=== PATIENT | male | born 1930 | race Asian ===

== ENCOUNTER 2017-03-11 01:28 | Inpatient (IN) | payer MEDICARE ==
[~2017-03-11] VITALS: Ht 154.9 cm; Wt 55.2 kg
[2017-03-11] VITALS (8 sets, daily range): BP systolic 95–134; BP diastolic 53–79; PULSE 73–88; RESP 16–22; O2SAT 93–98
[2017-03-11] MEDS ORDERED: ISOS10TA2 PO (03:07)
[2017-03-11] MEDS ORDERED: TAMS0.4C29 PO (03:07)
[2017-03-11] MEDS ORDERED: FLUT16SP NASAL (03:07)
[2017-03-11] MEDS ORDERED: LOSA100T29 PO (03:07)
[2017-03-11] MEDS ORDERED: ASPI-973 PO (03:08)
[2017-03-11] MEDS ORDERED: CLOP75TA28 PO (03:08)
[2017-03-11] MEDS ORDERED: TIMO5DRO5 BOTH_EYES (03:08)
[2017-03-11] MEDS ORDERED: POTA20TA16 PO (03:08)
[2017-03-11] MEDS ORDERED: FUR20 PO (03:08)
[2017-03-11] MEDS ORDERED: AMLO5TAB2 PO (03:08)
[2017-03-11] MEDS ORDERED: METF500T4 PO (03:08)
[2017-03-11] MEDS ORDERED: Alum-Mag Hydrox-Simeth 30 mL Suspension PO PRN (03:10)
[2017-03-11] MEDS ORDERED: Ondansetron 2 mg/mL 2 mL Inj IVPUSH PRN (03:10)
[2017-03-11] MEDS ORDERED: Polyethylene Glycol (PEG) 17 Gm Powder PO PRN (03:10)
[2017-03-11] MEDS ORDERED: Ondansetron 2 mg/mL 2 mL Inj ONE (03:13)
--- NOTE | 2017-03-11 03:50 | PCM.HPMED ---
Subjective Date of Service Mar 11, 2017 Primary Provider: Admitting Physician: Spenser El MD Primary Care Physician: Shyam Miner MD Attending Physician: Spenser El MD Chief Complaint: Weakness and Shortness of Breath History of Present Illness: Patient is an 86 y/o Male with past medical history of CAD with SC in 2003 resulting in CABG, CVA, HTN, Hyperlipidemia, and T2DM who was transferred from [facility] after c/o increased SOB and weakness onset at about 1800 yesterday evening 03/10. Patient reports that he had been feeling SOB all day yesterday, but after he ate dinner at home, he felt nauseous and increasingly short of breath. Patient reports some epigastric pain that is described at "gas in belly" that does not radiate. The symptoms are constant and are present during the interview. Patient denies any CP, MOORE, palpitations, or urinary symptoms. He states he had one episode of vomiting while being transferred to this facility. He has chronic diarrhea that is intermittent and has had diarrhea the past couple of days and throughout this month. He reports weakness in his legs that has been going on for the past month. Patient was seen at [facility] for cardiac workup. He has recently been evaluated for systolic congestive heart failure and has been placed on and Furosemide 20mg PO daily. He takes Amlodipine 5mg PO daily and Losartan 100mg PO daily. At [facility], his Troponin I was 6.03 and his CXR showed cardiomegaly with pulmonary vascular congestion and pulmonary edema, left greater than right. Bibasilar atelecatsis with pos. consolidation. Patient was placed on a Heparin drip and Cardiology,Dr. Cantu, was consulted prior to transfer. Review of Systems: ROS reviewed and otherwise negative unless noted above. Allergies Coded Allergies: No Known Allergies (Verified Allergy, Unknown, 03/11/17) Home Medications Clopidogrel 75mg PO daily Fluticasone 1 spray CRISTHIAN Daily PM Isosorbide 10mg PO daily Losartan 100mg PO daily Tamsulosin 0.4mg PO daily Timolol 0.25% Opth Drops 1 drop OP daily Amlodipine 5mg PO daily Metformin 500mg PO daily ASA 81mg PO daily Furosemide 20mg PO daily Potassium Chloride 20 MeQ PO daily with meals. PMH SC 2003 with CABG CVA ~2003 HTN Hyperlipidemia T2DM- non insulin dependent Surgical History CABG Family History Mother - CVA Father - CVA Social History Hx Alcohol Use: No Hx Substance Use: No Hx Tobacco Use: No Smoking Status: Never Smoker Living Arrangement: with Family Exam Vital Signs Vital Sign - Last Date Time Temp Pulse Resp B/P Pulse Ox O2 Delivery O2 Flow Rate FiO2 03/11/17 02:40 88 03/11/17 02:30 36.4 16 134/79 93 Nasal Cannula 3.00 Exam Constitutional: Awake, alert and oriented x3, no acute distress Head: Normocephalic and Atraumatic Eyes: pupils equal round and reactive to light; EOMI Heart: Regular rate and rhythm, No peripheral edema, JVD present Lungs: No wheeze, diminished breath sounds at the bases. no rales or rhonchi ABD: soft, nontender, bowel sounds present throughout Musculoskeletal: moves all four extremities appropriately Skin: warm, dry Neuro: CN II-XII intact. no focal deficits Psych: Appropriate mood and affect. Lab and Diagnostics Labs Labs Collected from [facility] WBC: 8.6 Hgb 13.7 HCT 41.2 Platelets 237 Sodium 122 Potassium 5.3 Chloride 85 Bicarb 20 BUN 41 SCr 1.7 Glucose 235 AST 137 ALT 79 Alk Phos 80 Trop-I 6.03 Lipase 46 X-Rays, CTs and MRIs CXR performed at [facility] and report obtained from faxed information Cardiomegaly with pulmonary vascular congestion and pulmonary edema, left greater than right. Bibasilar atelectasis vs consolidation. Assessment & Plan Patient is an 86 y/o Male with past medical history of CAD with SC in 2003 resulting in CABG, CVA, HTN, Hyperlipidemia, and T2DM who was transferred from [facility] after c/o increased SOB and weakness onset at about 1800 yesterday evening 03/10. - Acute Exacerbation of Congestive Heart Failure (type unspecified), POA, Active , Stable - Patient presents from [facility] with Shortness of breath and clinical signs of fluid overload including JVD and decreased basilar breath sounds - Patient's history indicates he was recently worked up for CHF, obtain records from [facility] for recent echo - Cadiology consulted, Dr. Cantu, who is aware of patient and will see in the morning. Cardiology does not feel this is due to an ischemic process and has ordered the Heparin drip to be discontinued. - Give Lasix 40mg IV once - CXR in AM - Troponin-I was elevated at [facility] at 6.03. Draw an initial Troponin level here and trend Q6. - Hold Amlodipine until cardiology has seen patient. - Continue Clopidogrel home dose - Acute Kidney Injury, POA, Active, Stable - Patient's SCr 1.7 on [facility]'s labs, baseline unknown. Etiology could be secondary to chronic Diabetes vs cardiorenal syndrome - Repeat CMP in AM - Hold Losartan home dose - Consult Nephrology in AM - Acute Elevated Anion Gap Metabolic Acidosis, POA, Active, Stable - Patient's AG was 17 at [facility]. Etiology could be secondary to vs Diarrhea (history and Patient hyperkalemic) vs EtOH (AST 137, ALT 79; although patient denies any EtOH use) vs medication induced hypoaldosteronism ( elevated K, patient on high dose Losartan) vs Renal Tubular Acidosis (SCr 1.7 ) - Hold Losartan - Hold Potassium - Serum EtOH - Serum Salicylate - Serum Lactic Acid -Acute Elevated Transaminases, POA, Active, Stable - Patient AST 137 ALT 79, although patient denies any EtOH use; etiology could be possible EtOH, Salicylate poisoning - Monitor with AM CMP - Serum EtOH - Serum Salicylate - Acute Hyperkalemia, POA, Active, Stable - Patient presented to [facility] with Potassium 5.3. Etiology could be secondary to untreated kidney disease, chronic diarrhea, over-medication as patient takes a home dose of Potassium - Furosemide 20mg IV - Repeat CMP in AM - Stool culture/ CDiff -Acute Hyponatremia, POA, Active, Stable - Patient's Sodium 120, Etiology could be fluid overload secondary to Congestive Heart Failure - Give Lasix 40mg IV once - Monitor with AM CMP - Chronic T2DM Uncontrolled, POA, Active, Stable - Hold Home Metformin - Insulin Correctional dosing - Chronic HTN, Stable - Hold home dose Losartan - Hold home dose Amlodipine PATIENT is LIMITED INTERVENTIONS: DNR; INTUBATE Due to the complexity of case and need for continued care, patient is admitted under inpatient status and expected length of stay is greater than 2 midnights . Pain Evaluation: Adequate Pain Control GI Prophylaxis: Proton Pump Inhibitor VTE Prophylaxis Indicated: Meets Criteria for Anticoag Therapy VTE Prophylaxis: Sub-Q Heparin (Unfractionated), SCDs VTE Mechanical Devices: Intermittant Pneumatic CD Resuscitation Status: Limited Interventions Limited Interventions: Intubation w Mech Vent Attending Statement The patient was seen and examined together with Dr. Watkins on 03/11 and I agree with the history, exam and plan as outlined in the note above. Georgi Watkins DO Mar 11, 2017 03:50 Spenser El MD Mar 11, 2017 06:30
--- NOTE | 2017-03-11 04:21 | NUR ---
Admit Patient admitted to [facility] 2030 at 0230; arrives via EMS from [facility]. A&Ox3, WHITE; sinus rhythm with a first degree AV block. Dr. Watkins to bedside to assess patient. Admit documentation and med reconciliation completed.
[2017-03-11 04:25] LABS: BASOPHILS % (AUTO) 0.1 % (0-3); EOSINOPHILS % (AUTO) 1.2 % (0-5); MONOCYTES % (AUTO) 7.8 % (4-12); Mean Corpuscular Hemoglobin 30.2 pg (27.0-35.0); Mean Corpuscular Volume 87.7 fL (81-100); NEUTROPHILS % (AUTO) 77.8 % (40-74); Platelet Count 237 bil/L (150-400)
[2017-03-11] MEDS ORDERED: Furosemide 10 mg/mL 2 mL Inj IVPUSH ONE (05:00)
[2017-03-11] MEDS ORDERED: Glucose 40% Oral Gel 15 Gm Tube PO PRN (05:00)
[2017-03-11] MEDS ORDERED: Furosemide 10 mg/mL 4 mL Inj IVPUSH ONE (05:10)
[2017-03-11] MEDS ORDERED: Dextrose 10% 250 ML IV PRN (05:20)
--- NOTE | 2017-03-11 05:52 | NUR ---
Urinary Retention Patient reporting urge to void, but unable to pass any urine. He states that he thinks he forgot to take his tamsulosin yesterday. Bladder scan for 309 ml. Suggested possibility of lopez catheter to patient; patient states he "hates that." Discussed with Dr. Watkins; IVP lasix given per orders. Give patient opportunities to void independently; if patient continues to be unable to void, re-approach on the issue of placing a lopez. Addendum: 03/11/17 at 0625 by RITESH BECKER RN Patient able to void 200 ml of urine into the urinal.
[2017-03-11] MEDS: Insulin LISPRO 300 Unit/3 mL Inj SUBQ SCH ×4 (08:00→22:00)
[2017-03-11] MEDS: Heparin 5,000 Unit/mL Inj SUBQ SCH ×2 (08:30→18:17)
[2017-03-11 08:43] LABS: APPEARANCE,URINE HAZY (CLEAR,HAZY); COLOR,URINE YELLOW (YELLOW); OCCULT BLOOD,URINE NEGATIVE (NEGATIVE); UROBILINOGEN,URINE NORMAL (NORMAL)
[2017-03-11 08:46] LABS: OSMOLALITY, URINE 487 mOs/kH2O (250-1200)
[2017-03-11] MEDS: Timolol 0.5% 5 mL Ophthalmic Solution BOTH_EYES SCH (08:50)
[2017-03-11] MEDS: Fluticasone 0.05% 15 Spray/2 Gm 16 Gm Nasal Spray NOSTRIL SCH (08:50)
[2017-03-11] MEDS: Isosorbide Mononitrate 30 mg ER24 Tablet PO SCH (08:50)
--- NOTE | 2017-03-11 10:57 | NUR ---
AM meds All AM meds administered at 0850, computer timed out and did not record administration.
--- NOTE | 2017-03-11 15:13 | NUR ---
Evaluation completed. Please go to "Notes" then click on "Assessments and Notes" (bottom left corner of screen). Then select appropriate discipline tab on top of screen.
--- NOTE | 2017-03-11 15:42 | CONS ---
[address] [address] CONSULTATION REPORT PATIENT: RUSTY LORENZO : 1930 MR#: [id number] ADMIT: 03/11/2017 JOB ID: [id number] DATE OF SERVICE: IDENTIFICATION: Dr. Stephania Queen has asked that I consult on this complicated, 86-year-old, male admitted in transfer from [facility] with symptoms of CHF. HISTORY: The patient describes his 1st cardiac history being in 2003, immediately following the of his , when he apparently had chest pain and a myocardial infarction and underwent CABG x3 at [facility] in [place]. Details are not known, but he subsequently moved to [place] where he was followed by Dr. Almonte and underwent cardiac catheterization around 5-6 years ago and was found to have an occluded graft but was treated medically. Again, details are not available. Around five years ago, he moved to [facility] and has been followed by Dr. Adkins and has generally done fairly well up until around two months ago, when he noted progressive fatigue and exertional dyspnea but denying any orthopnea or chest discomfort. His predominant complaint was of generalized weakness and was admitted to [facility] on March 06, 2017. He was felt to have CHF clinically and had an echocardiogram that reportedly showed an ejection fraction of 25% to 30% with anterior and anterolateral hypokinesis and akinesis of the inferior and inferolateral wall, with moderate right ventricular enlargement with mild right ventricular hypokinesis, with mild aortic insufficiency and moderate mitral and tricuspid regurgitation with a PAP estimated at 46 mmHg and a CVP estimated at 3 mmHg. He was treated with IV Lasix and started on furosemide 20 mg, in addition to his chronic isosorbide, losartan, amlodipine, and clopidogrel. His troponin at that admission was 0.16 with a BNP of 2200. His sodium was 131 with a BUN of 25 and creatinine 1.4, with a potassium of 3.7. He was discharged the following day on furosemide 20 mg orally, in addition to his previous medications. He initially felt better, but over the next several days, again developed increasing dyspnea and fatigue and weakness but no chest discomfort. He ultimately presented to [facility] emergency department last night where he was again felt to be in CHF. His BUN was now 41 with a creatinine of 1.7 with elevated LFTs and his troponin was now 6.0. He was treated with IV Lasix and transferred here. His initial troponin here was 0.89, increasing slightly to 0.94, with a BUN of 41 and a creatinine of 1.3, but a sodium of 120. His initial lactate was 2.6, and on repeat was 1.9. He currently feels improved after receiving IV Lasix. Denies any chest discomfort or dyspnea. He is relatively debilitated from a stroke from two years ago that left him with some left-sided hemiparesis but is able to ambulate with a cane and a walker and denies any exertional chest discomfort, although has bilateral lower extremity pain. CARDIAC RISK FACTORS: Notable for hypertension, diabetes, and hyperlipidemia. He was previously on losartan but his PCP apparently stopped this several years ago because, "I didn't need it." He has never smoked. FAMILY HISTORY: Notable for a sister who was successfully resuscitated from an episode of sudden cardiac , although further details are not known. PAST MEDICAL HISTORY: Only notable for his history of stroke and as above. He also has BPH. FAMILY HISTORY: As above. SOCIAL HISTORY: The patient is and lives near [place] with his niece. He denies any alcohol consumption. He is retired educator. REVIEW OF SYSTEMS: A complete review is performed and is notable for the absence of any recent fevers or chills or weight change. He has not noted any pedal edema. No vision change or ENT problems. Denies any cough or hemoptysis. No history of peptic ulcer disease or GI blood loss. Has symptoms of prostatism but otherwise no genitourinary complaints. He has had no recent neurologic symptoms. Denies any history of thyroid or bleeding disorder, anxiety or depression. PHYSICAL EXAMINATION: A pleasant, frail-appearing, elderly male in no distress, with a somewhat flat affect. HR 75-85. BP 113/72. He has had a net diuresis here of around 200 mL and his weight this morning is 58.9 kg. Skin: Warm and dry. HEENT: EOMI with moderate arcus. He has a partial plate but no obvious dental disease although has several sores on his tongue. Lungs: Clear bilaterally to auscultation without any appreciable rales or wheeze. CV: Nonpalpable PMI with distant heart tones with a regular rhythm. There is a 1/6 systolic murmur at the lower sternal border. JVP is greater than 9-10 cm. Carotid pulses are 1+ bilaterally without any associated bruit and a slightly blunted upstroke. Femoral pulses are trace bilaterally without any bruit. Dorsalis pedis and posterior tibial pulses are nonpalpable. Abdomen: Soft, nondistended, and nontender, without any palpable masses or hepatosplenomegaly. Normal bowel tones are present without bruits. Extremities: Cool without any clubbing, cyanosis, or edema. Neuro: Grossly moves all four extremities. Psych: Awake, alert, oriented, although with a somewhat flat affect. LABORATORY: White count of 7.3 with hematocrit of 38.6. Sodium on admission was 120 and now is 122 with a potassium improving from 5.4, down to 5.0. BUN is 40 with a creatinine of 1.5. Lactate has improved from 2.6 down to 1.9. Troponin is 0.97. ECG: Shows sinus rhythm at 86 BPM with a nonspecific intraventricular conduction delay with some J-point elevation, suggestive of previous LVH. There are inferior Q-waves consistent with previous inferior infarction and some nonspecific mild inferolateral ST depression, which appears unchanged compared to his ECG from [facility]. IMPRESSION: 1. Probable congestive heart failure likely secondary to ischemic cardiomyopathy. The patient clearly appears to be volume overloaded despite the report from the echocardiogram from [facility]. I would like to repeat an echocardiogram here to get a better sense of his volume status and LV systolic function. Given his report, I suspect that he has had progression of his underlying coronary artery disease, which sounded like it was not amenable to percutaneous revascularization five years ago. I will attempt to obtain those records. I did discuss with him whether he would be interested in any invasive procedures and he would not exclude this although I think he would be a fairly poor interventional candidate given his age and renal insufficiency as well as his general debility. I would initially attempt afterload reduction and diuresis to try to compensate his heart failure and then obtain a pharmacologic myocardial perfusion study to assess for ischemia. Given his recent significantly elevated troponin, I cannot exclude that he has had a recent ischemic event, although given the absence of any angina, this is uncertain and certainly the timing is also less clear, but likely would have occurred over the last five days, given his fairly normal troponin when he initially presented to [facility]. Again, an echocardiogram will be obtained. 2. Coronary artery disease, status post coronary artery bypass graft and myocardial infarction. As above. Again, records will be attempted to be obtained. 3. Hyperlipidemia. I will restart his atorvastatin. 4. Hypertension. I will discontinue his amlodipine and would prefer to use carvedilol and EMANUEL inhibitors or ARB for better afterload reduction but with close observation of his electrolytes and renal function. 5. Hyponatremia. Likely a function of his intravascular volume excess. Fluid restriction should be considered and hopefully this will improve with diuresis. 6. Probable peripheral arterial disease with diminished pulses throughout and a history of stroke. 7. Diabetes. Per the hospitalist. RECOMMENDATIONS: 1. Continue with moderately aggressive diuresis with the institution of low-dose carvedilol and reinstitution of ARB. 2. Follow his electrolytes and renal function closely. 3. Once he is better compensated, pursue risk stratification with a myocardial perfusion imaging study. 4. Repeat an echocardiogram to reassess current volume status. 5. Obtain old records. I will continue to follow with you during his hospitalization. I have spent 1 hour and 45 minutes reviewing the patient's medical record, interviewing the patient, and answering his questions.
--- NOTE | 2017-03-11 15:57 | DRSVH ---
[facility] [address] [place] [address] Echocardiogram Report Name: RUSTY LORENZO SStudy Date: 03/11/2017 Height: 61 in Hospital Exam Location: [facility] Weight: 130 lb Gender: Male BSA: 1.6 m2 : 1930 Age: 86 yrs BP: 113/ 72 mmHg Reason For Study: [facility] [place] Ordering Physician: [facility] Performed By: Dana Contreras Referring Physician: Adis Collins Interpretation Summary 1. Normal left ventricular size and wall thickness with an estimated EF of 30 -35%. Wall motion abnnormalities are as noted below 2. Normal right ventricular size with severely decreased systolic function. The estimated RVSP is 47 mm Hg 3. Moderate to severe mitral regurgitation 4. Findings consistent with moderate aortic stenosis and mild insufficiency No old study for comparison Procedure: A two-dimensional transthoracic echocardiogram with color flow and Doppler was performed. The study quality was technically adequate. There is no prior echocardiogram noted for this patient. The patient was in normal sinus rhythm during the exam. Left Ventricle: The left ventricle is normal in size. There is normal left ventricular wall thickness. Left ventricular systolic function is severely reduced. The ejection fraction is estimated to be 30-35%. Hypokinesis of the inferior/inferolateral wall. Diastolic function could not be accurately assessed due to unobtainable data. Right Ventricle: The right ventricle is borderline dilated. Right ventricular systolic function is severely reduced. Atria: The left atrium is moderately dilated. The right atrium is borderline dilated. There is no Doppler evidence for an interatrial shunt. Mitral Valve: The mitral valve leaflets appear thickened, but open well. There is mild mitral annular calcification. There is moderate to severe mitral regurgitation. Aortic Valve: The aortic valve is moderately calcified. Velocity ratio is 0.36 - findings suggestive of moderate valvular stenosis. There is mild aortic regurgitation. Tricuspid Valve: The tricuspid valve is normal. There is moderate to severe tricuspid regurgitation. The right ventricular systolic pressure is estimated at least 47 mmHg assuming a right atrial pressure of 8 mm Hg. Pulmonic Valve: The pulmonic valve leaflets are thin and pliable; valve motion is normal. There is mild pulmonic regurgitation. Great Vessels: The aortic root is normal size. The ascending aorta is normal in size. The aortic arch could not be visualized. The pulmonary artery is normal size. The IVC is of normal diameter and collapses less than 50% with a sniff. This suggests a right atrial pressure of 8 mm Hg. Pericardium/ Pleura There is no pericardial effusion. There is a large left -sided pleural effusion. MMode/2D Measurements & Calculations LVIDd: 4.6 cm LVIDs: 4.6 cm LA A2 area: 19.0 cm FS: 0.10 % LA A4 area: 25.6 cm EPSS: 1.3 cm LA length (vol): 6.1 cm IVSd: 0.93 cm LA vol: 68.1 ml LVPWd: 0.88 cm LA vol index: 43.3 ml/m IVC diam: 1.9 cm RA long axis: 4.9 cm LVOT diam: 1.9 cm RA area: 16.8 cm AoV Openin.94 cm RA vol: 48.8 ml Ao root diam: 3.2 cm RA : 31.0 ml/m2 asc Aorta Diam: 3.4 cm LVAd ap4: 26.1 cm2 LVAd ap2: 33.3 cm LVLd ap2: 8.4 cm EDV(MOD-sp2): 126.8 ml EDV(sp2-el): 112.7 ml ESV(MOD-sp2): 127.6 ml EF(MOD-sp2): -0.63 % LV winter. diameter/BSA (cm/m^2): 2.9 LV sys. diameter/BSA (cm/m^2): 2.9 RVD1 (basal): 3.7 cm Doppler Measurements & Calculations Ao V2 max: 156.9 cm/sec Ao max P.8 mmHg MVA(VTI): 0.91 cm2 Ao mean P.0 mmHg LVOT Max Marcos: 53.7 cm/sec DEEPIKA(I,D): 0.89 cm sev ratio: 0.31 AI P1/2t: 397.5 msec AI dec slope: 251.1 cm/sec2 Med Peak E' Marcos: 3.1 cm/sec TR max marcos: 313.1 cm/sec Lat Peak E' Marcos: 5.1 cm/sec TR max P.2 mmHg PA V2 max: 56.3 cm/sec PA mean P.66 mmHg MV V2 mean: 62.7 cm/sec Ao V2 mean: 106.4 cm/sec MV mean P.9 mmHg Ao V2 VTI: 28.0 cm MV V2 VTI: 27.4 cm DEEPIKA(V,D): 0.98 cm2 LV V1 max P.2 mmHg PA V2 mean: 38.5 cm/sec LV V1 VTI: 8.7 cm PA pr(Accel): 47.9 mmHg DEEPIKA indexed to BSA (cm^2/m^2): 0.57 Reading Physician:03:56 PM
--- NOTE | 2017-03-11 16:27 | NUR ---
Social Work Note: Initial Assessment Data& Assessment: EMR reviewed. BOOM CONVEYOR OPERATOR met with pt at bedside to discuss discharge planning, BOOM CONVEYOR OPERATOR role explained and Discharge Planning Checklist provided. Edwin Gao is a 86 year old male admitted on 03/11/2017 for NSTEMI and CHF. Pt has Medicare and AARP Supplemental insurance coverage and sees Shyam Miner MD for primary care. Pt does not have VA benefits or LTC insurance. Pt lives in [place] with family in a single story home with a ramp to enter. Pt is independent at baseline with all ADL's and drives occasionally but primarily uses [employer] for transportation. Pt uses a 4WW at baseline and also owns a cane at home. Pt does not have HH or SNF hx. MD does not identify any concerns for pt capacity for self care at this time. Pt was able to ambulate 125ft with PT, PT is recommending home when medically ready with no additional PT needs. Pt provided with DPOA/AD paperwork. Pt denies any needs at this time and confirmed that his niece will be able to transport him home when medically ready. No MD orders identified. BOOM CONVEYOR OPERATOR phone number provided on [employer]. Plan: Anticipated discharge home via POV when medically ready. BOOM CONVEYOR OPERATOR to continue to follow if any discharge needs or MD orders arise. SANDHYA Turner Addendum: 03/11/17 at 1636 by THEA JAUREGUI Amended: Links added.
--- NOTE | 2017-03-11 16:54 | DRSVH ---
PROCEDURE: X-RAY CHEST ONE VIEW, PORTABLE ([id number]) INDICATIONS: Fluid Overload TECHNIQUE: One view of the chest was acquired. COMPARISON: None. FINDINGS: Surgical changes and devices: Median sternotomy wires. Lungs and pleura: Diffuse, widespread bilateral pulmonary interstitial and bibasilar air space opaci ties are present. Small pleural effusions. No pneumothorax. Mediastinum: Mediastinal contours appear normal. Heart size is enlarged. Bones and chest wall: No suspicious bony lesions. Overlying soft tissues appear unremarkable. IMPRESSION: Pulmonary edema and/or bibasilar pneumonia and small pleural effusions are present. Dictated by: Nhan Henley MERGED WITH [facility] Interpreted: Coral Foley MD on 03/11/2017 at 8:17 Approved by: Coral Foley M.D. on 03/11/2017 at 16:52
--- NOTE | 2017-03-11 17:45 | PCM.PNMED ---
Subjective Date of Service Mar 11, 2017 Subjective Patient was seen and examined by me today. States his shortness of breath has improved with oxygen supplementation. Experienced symptoms of urinary urgency which improved with 40 mg IV furosemide. Currently no urinary complaints. Denies pain with urination or gross hematuria. Continues to feel weakness in his legs, denies numbness or tingling. Denies nausea or vomiting. Denies chest pain or palpitations. Denies confusion, lethargy or headaches. All other review of systems is negative. There were no other acute events overnight. Exam Vital Signs Vital Sign - Last Date Time Temp Pulse Resp B/P Pulse Ox O2 Delivery O2 Flow Rate FiO2 03/11/17 16:48 75 16 107/69 94 Room Air 03/11/17 13:03 2.50 03/11/17 08:49 36.5 Intake and Output 03/10/17 03/10/17 03/11/17 Cumulative From/Thru 15:00 23:00 07:00 03/11/17 02:30 - 03/11/17 06:39 Intake Total 0 ml 0 ml Output Total 200 ml 200 ml Balance -200 ml -200 ml Intake Oral 0 ml 0 ml Output Urine Total 200 ml 200 ml # Voids 1 1 Exam General: Patient is lying comfortably on bed, AAOX3, not in acute distress, cooperative and pleasant. HEENT: head normocephalic and atraumatic, PERRLA, EOMI, no scleral icterus, noninjected conjunctiva Neck: neck supple, non-tender, no lymphadenopathy, trachea midline, mild JVD CV: regular rate and rhythm, s1 and s2 heard, radial pulses equal bilaterally, no rubs, murmurs or gallops, no edema Lungs: decreased breath sounds diffusely, slightly worse on right lung base, no increased work of breathing Abdomen: normoactive bowel sounds on 4Q, soft, non-distended, non-tender to palpation, no organomegally, Skin: warm and dry Musculoskeletal: 5/5 strength in R leg, 4/5 in left, sensation grossly intact Neuro: Grossly neurologically intact, cranial nerves II through XII intact, no dyskinesia, dysmetria, or dysdiadochokinesia noted Psych: Normal mood and affect IVs and Medications Medications Reviewed: Medications were reviewed in detail Lab and Diagnostics Laboratory Tests Test 03/11/17 04:00 03/11/17 05:25 03/11/17 06:24 03/11/17 07:30 White Blood Count 7.3th/mm3 (3.8-10.1) Red Blood Count 4.40mil/mm3 (4.40-5.80) Hemoglobin 13.3g/dL (13.8-17.2) Hematocrit 38.6% (41.0-50.0) Mean Corpuscular Volume 87.7fL (81-100) Mean Corpuscular Hemoglobin 30.2pg (27.0-35.0) Mean Corpuscular Hemoglobin Concent 34.5% (32.0-37.0) Red Cell Distribution Width 12.8% (12.3-15.4) Platelet Count 237bil/L (150-400) Neutrophils (%) (Auto) 77.8% (40-74) Lymphocytes (%) (Auto) 12.7% (14-46) Monocytes (%) (Auto) 7.8% (4-12) Eosinophils (%) (Auto) 1.2% (0-5) Basophils (%) (Auto) 0.1% (0-3) Sodium Level 120mEq/L (134-144) Potassium Level 5.4mEq/L (3.5-5.2) Chloride Level 84mEq/L (97-108) Carbon Dioxide Level 22mmol/L (18-29) Blood Urea Nitrogen 41mg/dL (8-27) Creatinine 1.34mg/dL (0.76-1.27) Estimat Glomerular Filtration Rate 54mL/min (>59) Glucose Level 170mg/dL (60-99) Calcium Level 8.4mg/dL (8.5-10.1) Total Bilirubin 0.5mg/dL (0.0-1.2) Aspartate Amino Transf (AST/SGOT) 101U/L (0-50) Alanine Aminotransferase (ALT/SGPT) 74U/L (0-44) Alkaline Phosphatase 87U/L (25-160) Troponin T 0.890ug/L (0.0-0.011) Total Protein 6.8g/dL (6.4-8.4) Albumin 3.8g/dL (3.4-5.0) Osmolality 266 (275-300) Lactic Acid Level 2.6mmol/L (0.4-2.0) 1.9mmol/L (0.4-2.0) Salicylates Level 10.0ug/mL (30-250) Alcohols < 10mg/dL (0-10) Urine Color Yellow (YELLOW) Urine Appearance Hazy (CLEAR,HAZY) Urine pH 6.0 (5.0-8.0) Urine Specific [place] 1.015 (1.003-1.035) Urine Protein Negativemg/dL (NEG,TRACE) Urine Glucose (UA) Negativemg/dL (NEGATIVE) Urine Ketones Negativemg/dL (NEGATIVE) Urine Occult Blood Negative (NEGATIVE) Urine Nitrite Negative (NEGATIVE) Urine Bilirubin Negative (NEGATIVE) Urine Urobilinogen Normalmg/dL (NORMAL) Urine Leukocyte Esterase Negative (NEGATIVE) Urine RBC 0-2/hpf (0-2) Urine WBC 0-5/hpf (0-5) Urine Epithelial Cells Occasional/hpf (NONE-MOD) Urine Crystals None seen (NONE SEEN) Urine Bacteria None/hpf (NONE-FEW) Urine Hyaline Casts 5/20/lpf (NONE) Urine Granular Casts None seen (NONE SEEN) Urine Waxy Casts None seen (NONE SEEN) Urine Red Blood Cell Casts None seen (NONE SEEN) Urine White Blood Cell Casts None seen (NONE SEEN) Urine Mucus Present (None Seen) Urine Trichomonas None seen (NONE SEEN) Urine Yeast None (NONE SEEN) Urinalysis Comment None Urine Culture Reflexed Not indicated Urine Osmolality 487mOs/kH2O (250-1200) Urine Random Sodium 40mEq/L Test 03/11/17 10:19 03/11/17 11:00 03/11/17 15:50 Troponin T 0.974ug/L (0.0-0.011) 0.917ug/L (0.0-0.011) Sodium Level 122mEq/L (134-144) Potassium Level 5.0mEq/L (3.5-5.2) Chloride Level 84mEq/L (97-108) Carbon Dioxide Level 22mmol/L (18-29) Blood Urea Nitrogen 40mg/dL (8-27) Creatinine 1.49mg/dL (0.76-1.27) Estimat Glomerular Filtration Rate 48mL/min (>59) Glucose Level 132mg/dL (60-99) Calcium Level 8.4mg/dL (8.5-10.1) Thyroid Stimulating Hormone (TSH) 2.000uIU/mL (0.450-4.500) Result Diagram: 03/11/17 0400 03/11/17 1100 X-Rays, CTs and MRIs CXR performed at [facility] and report obtained from faxed information Cardiomegaly with pulmonary vascular congestion and pulmonary edema, left greater than right. Bibasilar atelectasis vs consolidation. Cardiac Echo Impressions ECHO on 03/11/17 Interpretation Summary 1. Normal left ventricular size and wall thickness with an estimated EF of 30 -35%. Wall motion abnnormalities are as noted below 2. Normal right ventricular size with severely decreased systolic function. The estimated RVSP is 47 mm Hg 3. Moderate to severe mitral regurgitation 4. Findings consistent with moderate aortic stenosis and mild insufficiency No old study for comparison Assessment & Plan Patient is an 86 y/o Male with past medical history of CAD with OR in 2003 resulting in CABG, CVA, HTN, Hyperlipidemia, and T2DM who was transferred from [facility] after c/o increased SOB and weakness onset at about 1800 yesterday evening 03/10. Acute Exacerbation of Systolic Congestive Heart Failure likely secondary to ischemic cardiomyopathy, POA, Active - Patient presents from [facility] with Shortness of breath and clinical signs of fluid overload including JVD and decreased basilar breath sounds - Patient's history indicates he was recently worked up for CHF, obtained records from [facility] for recent echo which showed EF 25-30% - [facility] consulted, Dr. Olivera and we appreciate his input - Per cardiology, continue with aggressive diuresis. Give Lasix 40mg IV daily -Consider pharmacologic myocardial perfusion study to assess for ischemia - CXR showed Pulmonary edema and/or bibasilar pneumonia and small pleural effusions are present. - Troponin-I was elevated at [facility] at 6.03. Draw an initial Troponin level here and trend Q6. 0.974, 0.917 - discontinue his amlodipine - Continue Clopidogrel home dose Acute Kidney Injury, POA, Active, Stable - Patient's SCr 1.7 on [facility]'s labs, baseline unknown. Etiology could be secondary to chronic Diabetes vs cardiorenal syndrome - Repeat CMP in AM Acute Elevated Anion Gap Metabolic Acidosis, POA, Active, Stable - Patient's AG was 17 at [facility]. Etiology could be secondary to vs Diarrhea (history and Patient hyperkalemic) vs EtOH (AST 137, ALT 79; although patient denies any EtOH use) vs medication induced hypoaldosteronism ( elevated K, patient on high dose Losartan) vs Renal Tubular Acidosis (SCr 1.7 ) - Serum Lactic Acid normalized to 1.9 -Continue to monitor BMP Acute Elevated Transaminases, POA, Active, Stable - Patient AST 137 ALT 79, although patient denies any EtOH use; etiology could be possible EtOH, Salicylate poisoning - Monitor with AM CMP - Serum EtOH and Serum Salicylate unremarkable Acute Hyperkalemia, POA, Active, Stable - Patient presented to [facility] with Potassium 5.3. Etiology could be secondary to untreated kidney disease, chronic diarrhea, over-medication as patient takes a home dose of Potassium - Furosemide 40 mg IV - Repeat CMP in AM - Stool culture/ CDiff Acute Hyponatremia, POA, Active, Stable - Patient's Sodium 120, Etiology could be fluid overload secondary to Congestive Heart Failure - Fluid restriction -Lasix 40 mg IV daily - Monitor with AM CMP Chronic T2DM Uncontrolled, POA, Active, Stable - Hold Home Metformin - Insulin Correctional dosing Chronic HTN, Stable -Per recommendations of cardiology, discontinue amlodipine -Start Carvedilol 3.25 mg bid -Losartan 12.5 mg daily Hyperlipidemia, Stable -Restart Atorvastatin PATIENT is LIMITED INTERVENTIONS: DNR; INTUBATE Disposition: We will continue with aggressive diuresis, reassess electrolytes and consider possible pharmacologic myocardial perfusion study to assess for ischemia per recommendations of cardiology. Pain Evaluation: Adequate Pain Control GI Prophylaxis: Proton Pump Inhibitor VTE Prophylaxis: Sub-Q Heparin (Unfractionated), SCDs VTE Mechanical Devices: Intermittant Pneumatic CD Resuscitation Status: Limited Interventions Limited Interventions: Intubation w [facility] Vent Attending Statement The patient was seen and examined together with Dr. Queen on 03/11/17 and I agree with the history, exam and plan as outlined in the note above. Stephania Queen DO Mar 11, 2017 17:45 Oanh Weiner DO Mar 17, 2017 14:55
--- NOTE | 2017-03-11 18:42 | NUR ---
Respiratory/Weakness No reports of chest pain/pressure/discomfort. Tele SR with 1st degree block, 70s with PVCs. BP within normal limits. Distal pulses faint. Reports mild SOB at rest, reports it has improved. This AM, patient SPO2 on 2L NC 98%, increased SOB and fatigue with ambulation. Rare dry cough with no sputum. As shift progressed, reports he feels his respiratory status has improved and is currently on RA at 96%, ambulated without O2 with PT and tolerated well. Alert and oriented x3, WHITE, reports full sensation. Moderate decrease r/t malaise and weakness per patient. Patient has had previous CVA, residual left sided weakness which affects gait.
[2017-03-12] VITALS (8 sets, daily range): BP systolic 95–110; BP diastolic 53–66; PULSE 72–89; RESP 16–18; O2SAT 93–97
[2017-03-12] MEDS: Heparin 5,000 Unit/mL Inj SUBQ SCH ×3 (00:57→15:11)
[2017-03-12 03:26] LABS: BASOPHILS % (AUTO) 0.5 % (0-3); EOSINOPHILS % (AUTO) 4.8 % (0-5); MONOCYTES % (AUTO) 11.4 % (4-12); Mean Corpuscular Volume 87.7 fL (81-100); NEUTROPHILS % (AUTO) 65.4 % (40-74); Platelet Count 237 bil/L (150-400)
[2017-03-12] MEDS ORDERED: Furosemide 10 mg/mL 4 mL Inj IVPUSH ONE (04:05)
[2017-03-12 04:08] LABS: Magnesium 2.3 mg/dL (1.6-2.6); Phosphorus 4.1 mg/dL (2.5-4.9)
[2017-03-12 04:16] LABS: TROPONIN T 1.09 ug/L (0.0-0.011)
--- NOTE | 2017-03-12 05:33 | NUR ---
Tele/Troponin/Rest Sinus rhythm with 1st deg AVB, occasional PVCs. Patient's troponin continues trending up, most recent value 1.09. Dr. Watkins aware. Patient resting comfortably in bed with no complaints of pain. Continue to monitor.
[2017-03-12] MEDS: Insulin LISPRO 300 Unit/3 mL Inj SUBQ SCH ×4 (08:00→22:00)
[2017-03-12] MEDS: Isosorbide Mononitrate 30 mg ER24 Tablet PO SCH (08:02)
[2017-03-12] MEDS: Fluticasone 0.05% 15 Spray/2 Gm 16 Gm Nasal Spray NOSTRIL SCH (08:04)
[2017-03-12] MEDS: Timolol 0.5% 5 mL Ophthalmic Solution BOTH_EYES SCH (08:04)
[2017-03-12] MEDS: Furosemide 10 mg/mL 4 mL Inj IVPUSH SCH (08:04)
[2017-03-12] MEDS ORDERED: Heparin 5,000 Unit/mL Inj IVPUSH ONE (08:25)
[2017-03-12] MEDS ORDERED: Heparin 25K Unit/500mL 0.45 NS 25,000 UNIT in IV Premix 1 EACH IV SCH (08:25)
[2017-03-12] MEDS ORDERED: Heparin 5,000 Unit/mL Inj IVPUSH PRN (08:25)
--- NOTE | 2017-03-12 11:03 | PROG NOTE ---
[address] [address] PROGRESS NOTE PATIENT: RUSTY LORENZO : 1930 MR#: [id number] ADMIT: 03/11/2017 JOB ID: [id number] DATE: 03/12/2017 SUBJECTIVE: The patient states that he feels his breathing is improved and is now back to near his baseline. He has ambulated only into the bathroom and back. He chronically sleeps in a upright position but more out of habit, and denies any clear orthopnea. His main complaint is of a worsening appetite but denies any specific pain. Specifically, he has had no chest discomfort. He denies any palpitations or lightheadedness. I was able to obtain the old records from his surgery in January 2005. He presented with a chest pain syndrome at that time, and cardiac catheterization showed a 50% left main stenosis, a high-grade lesion in the LAD, an 80% stenosis in the left circumflex, and an occlusion of the RCA with inferior wall hypokinesis, with an ejection fraction around 40%. He subsequently had an FORTE placed to the LAD, and separate vein graft to the diagonal and obtuse marginal. It is not clear from the records which graft was found to be occluded at the time of his repeat catheterization five years ago. His echocardiogram here again showed an ejection fraction around 30-35% with akinesis of the inferolateral segment with global hypokinesis, worse proximally. The right ventricle was mildly dilated, with severe reduced LV systolic function. There was moderate to severe mitral regurgitation, likely due to papillary muscle dysfunction as well as moderate to severe tricuspid regurgitation with PA pressure estimated at 47 mmHg with a CVP of 8 mmHg. PHYSICAL EXAMINATION: Pleasant, elderly, male, lying comfortably in bed. HR has been generally in the 70s and low 80s. BP has generally been in the 100-115 range. His weight is down 1.8 kg. His Is and Os are inaccurate. Lungs: Dullness at both bases without any appreciable rales. CV: Regular rhythm with distant heart tones, with a 1/6 systolic murmur at the lower sternal border. JVP is more challenging to assess and appears to be improved, but continues to likely be elevated. Abdomen: Soft, nondistended, nontender. Extremities: Warm without edema. LABORATORY: Hematocrit is 39% with a white count of 6.5. Sodium is improved from 122 up to 124. BUN is 39, with a creatinine of 1.3, compared to 40 and 1.5 yesterday. Magnesium is 2.3. Troponins continue to be elevated, slightly higher this morning at 1.1, compared to 1.0 yesterday. TSH was normal at 2.0. IMPRESSION: 1. Congestive heart failure, likely secondary to ischemic cardiomyopathy with resultant ischemic moderate to severe, possibly severe mitral regurgitation. It appears that he has a chronically occluded right coronary artery with an inferior wall motion abnormality with reduced ejection fraction. I suspect that he may have occluded his obtuse marginal vein graft at some point in the past. It is less clear whether he has had an acute coronary event here, although his elevated troponins are certainly concerning for such. Yet, I continue to believe that the patient is a fairly poor interventional candidate given his age, previous bypass grafting, diabetes, and renal insufficiency. We again had discussions in regard to his goals of therapy. He is not interested in any surgical treatment for his CAD or mitral valve disease. While cardiac catheterization could be considered, I think the likelihood of finding a lesion that could be revascularized and demonstrably improve his mitral regurgitation and LV function is unlikely but not negligible. Yet, this could also be with a significant risk for worsening his renal function. Given the complexity of his cardiac situation, I have recommended that the Palliative Care team discuss with the patient and his family the goals of therapy. In the meantime, I would continue with diuretic therapy with close observation of his fluid balance. I suspect he continues to be volume overloaded. It does not appear that there is any further room for afterload reduction given his current blood pressures. 2. Coronary artery disease, status post coronary artery bypass graft and previous myocardial infarction. As above. 3. Hypertension. As above. 4. Hyponatremia. This appears to be improving with diuresis, suggesting that it was likely secondary to his heart failure, and hopefully will continue to improve. 5. Peripheral artery disease (PAD), with diminished distal pulses. This could make any vascular access for percutaneous intervention challenging. 6. Diabetes. Per the hospitalist. 7. Nausea. Unclear etiology. RECOMMENDATIONS: 1. Continue with moderate diuresis but with close observation of his Is and Os and renal function. 2. Palliative Care consult in an effort to identify goals of therapy and whether he would be interested in any invasive treatment plan. 3. Continue to monitor electrolytes and renal function. TIME SPENT: I spent 58 minutes reviewing his outside medical records, interviewing and examining the patient, having detailed discussions in regards to the implications of his cardiac issues.
--- NOTE | 2017-03-12 18:34 | PCM.PNMED ---
Subjective Date of Service Mar 12, 2017 Subjective Patient is an 86 y/o Male with past medical history of CAD with DC in 2004 resulting in CABG, CVA, HTN, Hyperlipidemia, and T2DM who was transferred from [facility] after c/o increased SOB and weakness onset at about 1800 on 03/10/17. Patient was seen and examined by me today. Overnight telemetry showed first degree heart block with occasional PVCs. Troponins trended up from 0.917 to 1.09. Patient reports feeling better today and that his respiratory status is better. Denies shortness of breath and says he is breathing comfortably without supplemental oxygen. Improved leg weakness, denies muscle cramps, numbness or tingling. Has a dry, non-productive cough. Complains of constipation and loss of appetite. Denies chest pain or palpitations. Denies nausea or vomiting. Denies difficulties urinating. Denies dizziness, syncope, or loss of balance. All other review of systems is negative. There were no acute events overnight. Exam Vital Signs Vital Sign - Last Date Time Temp Pulse Resp B/P Pulse Ox O2 Delivery O2 Flow Rate FiO2 03/12/17 03:33 36.7 84 16 107/65 97 Room Air 03/11/17 13:03 2.50 Intake and Output 03/11/17 03/11/17 03/12/17 Cumulative From/Thru 15:00 23:00 07:00 03/11/17 02:30 - 03/12/17 06:38 Intake Total 200 ml 125 ml 325 ml Output Total 1 ml 201 ml Balance 199 ml 125 ml 124 ml Intake Oral 200 ml 125 ml 325 ml Output Urine Total 200 ml Urine/Stool Mix 1 ml 1 ml # Voids 3 3 7 Exam General: Patient is lying comfortably on bed, AAOX3, not in acute distress, cooperative and pleasant. HEENT: head normocephalic and atraumatic, PERRLA, EOMI, no scleral icterus, noninjected conjunctiva Neck: neck supple, non-tender, no lymphadenopathy, trachea midline, mild JVD CV: regular rate and rhythm, s1 and s2 heard, radial pulses equal bilaterally, no rubs, no edema, grade II/6 systolic murmur heard best of LLSB, distal pulses difficult to palpate Lungs: decreased breath sounds diffusely, slightly worse on right lung base, no increased work of breathing Abdomen: normoactive bowel sounds on 4Q, soft, non-distended, non-tender to palpation, no organomegally, Skin: warm and dry Musculoskeletal: 5/5 strength in R leg, 4/5 in left, sensation grossly intact Neuro: Grossly neurologically intact, cranial nerves II through XII intact, no dyskinesia, dysmetria, or dysdiadochokinesia noted Psych: Normal mood and affect IVs and Medications Medications Reviewed: Medications were reviewed in detail Medications High Risk medications include heparin drip Lab and Diagnostics Laboratory Tests Test 03/11/17 10:19 03/11/17 11:00 03/11/17 15:50 03/12/17 03:10 Troponin T 0.974ug/L (0.0-0.011) 0.917ug/L (0.0-0.011) 1.09ug/L (0.0-0.011) Sodium Level 122mEq/L (134-144) 124mEq/L (134-144) Potassium Level 5.0mEq/L (3.5-5.2) 4.9mEq/L (3.5-5.2) Chloride Level 84mEq/L (97-108) 87mEq/L (97-108) Carbon Dioxide Level 22mmol/L (18-29) 24mmol/L (18-29) Blood Urea Nitrogen 40mg/dL (8-27) 39mg/dL (8-27) Creatinine 1.49mg/dL (0.76-1.27) 1.30mg/dL (0.76-1.27) Estimat Glomerular Filtration Rate 48mL/min (>59) 56mL/min (>59) Glucose Level 132mg/dL (60-99) 110mg/dL (60-99) Calcium Level 8.4mg/dL (8.5-10.1) 8.3mg/dL (8.5-10.1) Thyroid Stimulating Hormone (TSH) 2.000uIU/mL (0.450-4.500) White Blood Count 6.5th/mm3 (3.8-10.1) Red Blood Count 4.40mil/mm3 (4.40-5.80) Hemoglobin 13.2g/dL (13.8-17.2) Hematocrit 38.6% (41.0-50.0) Mean Corpuscular Volume 87.7fL (81-100) Mean Corpuscular Hemoglobin 30.0pg (27.0-35.0) Mean Corpuscular Hemoglobin Concent 34.2% (32.0-37.0) Red Cell Distribution Width 12.9% (12.3-15.4) Platelet Count 237bil/L (150-400) Neutrophils (%) (Auto) 65.4% (40-74) Lymphocytes (%) (Auto) 17.4% (14-46) Monocytes (%) (Auto) 11.4% (4-12) Eosinophils (%) (Auto) 4.8% (0-5) Basophils (%) (Auto) 0.5% (0-3) Lactic Acid Level 1.4mmol/L (0.4-2.0) Phosphorus Level 4.1mg/dL (2.5-4.9) Magnesium Level 2.3mg/dL (1.6-2.6) Total Bilirubin 0.4mg/dL (0.0-1.2) Aspartate Amino Transf (AST/SGOT) 81U/L (0-50) Alanine Aminotransferase (ALT/SGPT) 85U/L (0-44) Alkaline Phosphatase 79U/L (25-160) Total Protein 6.7g/dL (6.4-8.4) Albumin 3.7g/dL (3.4-5.0) Result Diagram: 03/12/17 03103/12/17 0310 X-Rays, CTs and MRIs CXR performed at [facility] and report obtained from faxed information Cardiomegaly with pulmonary vascular congestion and pulmonary edema, left greater than right. Bibasilar atelectasis vs consolidation. Cardiac Echo Impressions ECHO on 03/11/17 Interpretation Summary 1. Normal left ventricular size and wall thickness with an estimated EF of 30 -35%. Wall motion abnnormalities are as noted below 2. Normal right ventricular size with severely decreased systolic function. The estimated RVSP is 47 mm Hg 3. Moderate to severe mitral regurgitation 4. Findings consistent with moderate aortic stenosis and mild insufficiency No old study for comparison Assessment & Plan Patient is an 86 y/o Male with past medical history of CAD with DC in 2003 resulting in CABG, CVA, HTN, Hyperlipidemia, and T2DM who was transferred from [facility] after c/o increased SOB and weakness onset at about 1800 on 03/10/17. - Acute Exacerbation of Systolic Congestive Heart Failure likely secondary to ischemic cardiomyopathy, POA, Active - Patient presents from [facility] with Shortness of breath and clinical signs of fluid overload including JVD and decreased basilar breath sounds - Patient's history indicates he was recently worked up for CHF, obtained records from [facility] for recent echo which showed EF 25-30% - Cadiology consulted, Dr. Olivera and we appreciate his input - Per cardiology, continue with aggressive diuresis. Give Lasix 40mg IV daily -Consider pharmacologic myocardial perfusion study to assess for ischemia - CXR showed Pulmonary edema and/or bibasilar pneumonia and small pleural effusions are present. - Troponin-I was elevated at [facility] at 6.03. Draw an initial Troponin level here and trend Q6. 0.974, 0.917, 1.09 - discontinue his amlodipine - Continue Clopidogrel home dose -Given increase in troponin to 1.09 and new EKG changes this am on 03/12 which showed T wave inversions leads V1-V6 and ST depression, V1-V3, concern for ACS and we started patient on Heparin drip per cardiac protocol -Cardiology is uncertain if patient would be a good candidate for cardiac catheterization given worsening renal function. In addition, patient is not interested in surgical treatment for severe mitral regurgitation -Cardiology consulted palliative to speak with patient about goals of care. - Acute Kidney Injury, POA, Active, Stable - Patient's SCr 1.[address] [facility]'s labs, baseline unknown. Etiology could be secondary to chronic Diabetes vs cardiorenal syndrome - Repeat CMP in AM shows improvement Cr today 1.30 - Acute Elevated Anion Gap Metabolic Acidosis, POA, Active, Stable - Patient's AG was 17 at [facility]. Etiology could be secondary to vs Diarrhea (history and Patient hyperkalemic) vs EtOH (AST 137, ALT 79; although patient denies any EtOH use) vs medication induced hypoaldosteronism ( elevated K, patient on high dose Losartan) vs Renal Tubular Acidosis (SCr 1.7 ) - Serum Lactic Acid normalized to 1.9 -Continue to monitor BMP -Acute Elevated Transaminases, POA, Active, Stable - Patient AST 137 ALT 79, although patient denies any EtOH use; etiology could be possible EtOH, Salicylate poisoning - Monitor with AM CMP. Improving today to AST 81, ALT 85 - Serum EtOH and Serum Salicylate unremarkable - Acute Hyperkalemia, POA, resolved Stable - Patient presented to [facility] with Potassium 5.3. Etiology could be secondary to untreated kidney disease, chronic diarrhea, over-medication as patient takes a home dose of Potassium - Furosemide 40 mg IV - Repeat CMP in AM shows that hyperkalemia resolved - Stool culture/ CDiff -Acute Hyponatremia, POA, Active, Stable - Patient's Sodium 120, Etiology could be fluid overload secondary to Congestive Heart Failure - Fluid restriction. -Lasix 40 mg IV daily -Patient's corrected sodium increased to 124 - Monitor with AM CMP - Chronic T2DM Uncontrolled, POA, Active, Stable - Hold Home Metformin - Insulin Correctional dosing - Chronic HTN, Stable -Per recommendations of cardiology, discontinue amlodipine -Start Carvedilol 3.25 mg bid -Losartan 12.5 mg daily Hyperlipidemia, Stable -Restart Atorvastatin PATIENT is LIMITED INTERVENTIONS: DNR; INTUBATE Disposition: We will continue with aggressive diuresis, reassess electrolytes and consider goals of care with palliative. Pain Evaluation: Adequate Pain Control GI Prophylaxis: Proton Pump Inhibitor VTE Prophylaxis: Sub-Q Heparin (Unfractionated), SCDs VTE Mechanical Devices: Intermittant Pneumatic CD Resuscitation Status: Limited Interventions Limited [facility] Time spent 30 minutes Attending Statement I have seen and evaluated the patient at bedside in addition to directly supervising care provided by resident physician Dr Queen on 03/12/2017. I agree with above documentation. Stephania Queen DO Mar 12, 2017 08:01 Moreno Zhao DO Mar 13, 2017 08:23
[2017-03-13] VITALS (9 sets, daily range): BP systolic 85–112; BP diastolic 44–67; PULSE 67–77; RESP 15–20; O2SAT 93–100
[2017-03-13] MEDS: Heparin 5,000 Unit/mL Inj SUBQ SCH ×3 (00:30→16:48)
--- NOTE | 2017-03-13 02:08 | NUR ---
Heparin Gtt/ Tele/Miralax Ptt Heparin @ 2300-103.9, stopped Gtt for 30 minutes , restarted at 650 U/Hr. decreased 100 U / Hr per Cardiac Heparin protocol C/O constipation , gave senna and Miralax. A&O x3 using call light appropriately, NPO after midnight . Held Sub Q heparin dose . Room Air. SBA to toilet w FWW. needs help pushing IV pole/ Tele SR 70 1st degree PVC Addendum: 03/13/17 at 0629 by MICHAEL RUIZ RN Chest pain, 5-6, ordered EKG, placed 2 L O2 , NC Gave 1 Mg Morphine IV, one sublingual Nitro glycerine, pain subsided over 15 minutes to no pain, is sleeping. Heparin Gtt @ 650.
[2017-03-13 03:06] LABS: Mean Corpuscular Hemoglobin 30.6 pg (27.0-35.0); Mean Corpuscular Volume 88.5 fL (81-100)
[2017-03-13 03:59] LABS: Magnesium 2.3 mg/dL (1.6-2.6)
[2017-03-13 04:00] LABS: TROPONIN T 0.62 ug/L (0.0-0.011)
[2017-03-13 06:39] LABS: Creatine Kinase 64 U/L (21-232)
[2017-03-13 06:57] LABS: TROPONIN T 0.527 ug/L (0.0-0.011)
[2017-03-13] MEDS: Isosorbide Mononitrate 30 mg ER24 Tablet PO SCH (09:21)
[2017-03-13] MEDS: Timolol 0.5% 5 mL Ophthalmic Solution BOTH_EYES SCH (09:22)
[2017-03-13] MEDS: Fluticasone 0.05% 15 Spray/2 Gm 16 Gm Nasal Spray NOSTRIL SCH (09:22)
[2017-03-13] MEDS: Insulin LISPRO 300 Unit/3 mL Inj SUBQ SCH ×4 (09:23→21:19)
[2017-03-13] MEDS: Furosemide 10 mg/mL 4 mL Inj IVPUSH SCH (09:23)
--- NOTE | 2017-03-13 10:49 | PROG NOTE ---
[address] [address] PROGRESS NOTE PATIENT: RUSTY LORENZO : 1930 MR#: [id number] ADMIT: 03/11/2017 JOB ID: [id number] DATE: 03/13/2017 CARDIOLOGY PROGRESS NOTE: The patient feels improved today feeling that his breathing has continued to improve and is now back to baseline. He was able to walk in the hallways yesterday without any lightheadedness or chest discomfort, although had some mild discomfort this morning that he ascribes to indigestion, something he has had previously and is reliably relieved with antacids. He denies any anginal discomfort. He has had no sense of any palpitations or lightheadedness although telemetry showed a nine beat run of an irregular wide complex tachycardia rate of 110-150 yesterday morning but none since then. He denies any history of any palpitations or lightheadedness. PHYSICAL EXAMINATION: HR 70. BP 105/60, although was in the mid-90s yesterday. O2 saturation is 98% on room air. His I's and O's remain unreliable, but his weight is down 2.3 kg since admission. Lungs: Clear with minimal crackles at the bases. CV: Regular rate and rhythm with a 3/6 holosystolic murmur at the apex. JVP remains challenging to assess but appears to be improved from yesterday. Abdomen: Soft, nondistended, nontender without any hepatosplenomegaly or hepatojugular reflex. Extremities warm without any edema. LABORATORY: Sodium this morning was 127, up from 120 on admission with a BUN of 34 and a creatinine of 1.15, down from 41 and 1.34 on admission. His troponin peaked at 1.09 and has subsequently fallen. Liver function has continued to improve. ECG: Shows sinus rhythm at 73 BPM with an LVH pattern with strain. There is borderline first-degree AV block with a IN interval of 203 msec. His PVCs have resolved but otherwise there has been no significant change. IMPRESSION: 1. Acute on chronic congestive heart failure secondary to ischemic cardiomyopathy and moderately severe to severe mitral regurgitation. He is symptomatically improved, reflected by improvement in his electrolytes. I suspect he continues to have some volume overload. His rate of diuresis remains somewhat challenging to assess given the inaccurate urine output data. He now states that he does not want to have any procedures pursued including angiography which I think is reasonable given the relatively low likelihood of finding significant opportunities for improvement in his prognosis. As such, will continue with medical therapy. Palliative care is planning on seeing the patient today to further discuss his goals of therapy. At this point, I would recommend discontinuing his Imdur and advancing his carvedilol from 3.125 to 6.25 mg b.i.d. I will change his furosemide from 40 mg IV to 40 mg orally and add low-dose spironolactone. If he continues to do well, one could consider further advancement of his carvedilol versus increasing his losartan for further afterload reduction. He will need to have his electrolytes and renal function watched closely. I suspect he will require at least 1-2 more days of titration of his medications for optimization and then he can likely be discharged with followup with the CHF Clinic. 2. Coronary artery disease status post coronary artery bypass graft with abnormal troponins. He may have well had a recent graft failure but at this point his troponins are trending downward. His chest discomfort this morning sounds more gastrointestinal given its relief with antacids. Again, he does not wish to pursue any invasive procedures at this point, and thus there is no rationale for doing any stress testing at this point. 3. Hypertension. Well controlled. 4. Hyponatremia. Improving with diuresis. 5. Peripheral arterial disease. 6. Diabetes. Per the hospitalist. PLAN: 1. Change IV furosemide to oral furosemide and initiate spironolactone with close observation of electrolytes and renal function. 2. Advance carvedilol 3.125 to 6.25 mg daily. 3. Consider further advancement of his losartan and/or carvedilol depending upon his heart rate, renal function and electrolytes. 4. I expect that he can be discharged in 1-2 days depending upon his clinical course with outpatient followup through the CHF clinic. 5. Pursue palliative care consult to further define his goals of therapy. I spent 50 minutes reviewing the patient's medical record, interviewing and examining the patient and discussing his case with the care team and palliative care service.
--- NOTE | 2017-03-13 11:07 | NUR ---
Palliative Care Order received from Dr Dayron Olivera 03/12/17 (late) to assist with goals of care. Patient admitted 03/11/17. Aguila (son) [phone] Macario (niece) [phone] Palliative Care to follow. Viv Jovel
--- NOTE | 2017-03-13 16:43 | PCM.CONPAL ---
Date of Service Mar 13, 2017 Date of Hospital Admission: Mar 11, 2017 at 02:30 Date of Palliative Consult: Mar 13, 2017 Requesting Provider: Demario Cross MD Comment: PCP Dr. Shyam Miner Reason Palliative Care Consult: Advance Care Planning, Goals of Care Discussion Hospital Unit @time of consult: Progressive Care Palliative Care Recommendation Summary of palliative recommendations: -Symptom management (Pain/other) Dyspnea- due to CHF. Prognosis is worsened by his hyponatremia. CHF under cardiac management and patient is not interested in further cath or aggressive interventions suspect he has had more sx than he acknowledges creeping up on him over time Weakness-also acute in onset. Mild orthostasis-no recent falls.Gait imbalance-he is very disciplined in using either his cane or now more recently a walker. GOALS OF CARE: He is interested in med management but he is not interested in aggressive care. He hopes he can improve back to close to his prior baseline. That was a good QOL If his sx worsen he would be willing to entertain hospice. He is familiar with how they fxn/purpose since his sister was on hospice as she became ill. -DPOA/Advanced Directives/POLST --DPOAHC not completed. He identifies his niece- Kerline Aguilar [phone] as his preference for DPOAHC and his children to follow but mostly due to distance/proximity. Form given for completion and witnessing or notary. Same for AD. POLST is completed for DNR/limited intervention but no feeding tube. 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 PT outpatient Abn LFT- suspect congestive vs [place] Problems: End of Life Preferences DNR, no feeding tube. Goals of Care He hopes to have some improvement in heart condition and fxn. Only moderate improvement will help with general. Resuscitation Status Resuscitation Status: DNR/DNI:Do Not Resuscitate/Intubate Limited Interventions: BiPAP, Medications and IV Fluid POLST Updates/Changes Previous POLST?: No Artificially Admin Nutrition: No Artifical Nutrition by Tube POLST Discussed with: Patient POLST Review Outcome: New Form Completed . Advanced Care Planning Address: POLST, Code status change Pain: None Symptom management: Dyspnea Pt History History of Present Illness Patient is an 86 y/o Male with past medical history of CAD with [place] in 2003 resulting in CABG, CVA, HTN, Hyperlipidemia, and T2DM who was transferred from [facility] after c/o increased SOB and weakness onset at about 1800 yesterday evening 03/10. Patient reports that he had been feeling SOB all day yesterday, but after he ate dinner at home, he felt nauseous and increasingly short of breath. Patient reports some epigastric pain that is described at "gas in belly" that does not radiate. The symptoms are constant and are present during the interview. Patient denies any CP, MOORE, palpitations, or urinary symptoms. He states he had one episode of vomiting while being transferred to this facility. He has chronic diarrhea that is intermittent and has had diarrhea the past couple of days and throughout this month. He reports weakness in his legs that has been going on for the past month. Patient was seen at [facility] for cardiac workup. He has recently been evaluated for systolic congestive heart failure and has been placed on and Furosemide 20mg PO daily. He takes Amlodipine 5mg PO daily and Losartan 100mg PO daily. At [facility], his Troponin I was 6.03 and his CXR showed cardiomegaly with pulmonary vascular congestion and pulmonary edema, left greater than right. Bibasilar atelecatsis with pos. consolidation. Patient was placed on a Heparin drip and Cardiology,Dr. Cantu, was consulted prior to transfer. PALLIATIVE CARE CONSULTATION REQUESTING DR.ROB CROSS REASON GOALS OF CARE/ACP 86 yo patient followed by Dr. Miner on [facility] for the past 5 yrs with known ASCAD s/p VA/CABG in 2003 at the time his was dying from a CVA. He has been seen by cardiology before moving to [facility] to be near his niece with a note of occluded graft and advise to treat medically. He has done well over the past 5 yrs despite a low EF dating back to 2003. He states he has had some SMITH and has curtailed his activities probably for a bit of time although has a hard time identifying being SOB. He notes CP/pressure with increasing SOB only 2 -3 days before admission.He denies orthopnea, PND or edema. He has some gait instability and uses a cane and occasionally a walker and then can shop [email or web address]. He identifies a very good QOL until recent sx He lives on [facility] to be near his niece. He has a son and daughter by his first who live in [place]. He identifies all trustworthy for decision making but 1st is his niece due to proximity. He has not completed DPOAHC to reflect this/nor AD. Denies pain, weight loss-has a very good appetite. No sense of malaise or fatigue until just past few days to a week. Has chronic alternating constipation and diarrhea but has not pursued this to ID cause. No blood. 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 Family Members Issues: -2nd of 30 yrs in 2003. 1 son and 1 daughter in [place] are, 1 niece living on [employer] [address] [employer] Social Support: niece Living Situation: lives with his niece. Spiritual Support Spiritual Support describes self as a "generic" caodaism-not affiliated with any specific amish Responsive Patient Symptoms Pain (current): None Pain (minimum): None Pain (maximium): None Tiredness/Fatigue: Moderate Nausea: None Depression: None Anxiety: Mild Drowsiness/Sleepiness: None Anorexia: None Shortness of Breath: Moderate (as SMITH) Constipation alternate diarrhea and constipation Other gait instability Palliative Performance Scale PPS Patient Status: Current PPS Ambulation: Reduced PPS Activity: Unable to do most activity PPS Self-Care: Full Self Care PPS Intake: Normal PPS Conscious Level: Full Performance Scale: 70% ADLs ADL Patient Status: Current ADL Ambulation: Reduced ADL Dressing: Full ADL Feeding: Full ADL Hygene/bathing: Full ADL Transfers: Full POLST at Time of Admission Previous POLST?: No Allergy Allergies Reviewed: Yes Medications Current Medications: Current Medications Furosemide 40 mg DAILY IVPUSH Last administered on 03/13/17t 09:23; Admin Dose 40 MG; Start 03/12/17 at 08:30; Stop 03/13/17 at 10:15; Status DC Atorvastatin Calcium 40 mg HS PO Last administered on 03/12/17t 20:39; Admin Dose 40 MG; Start 03/11/17 at 21:00 Heparin Sodium (Porcine) Per Protocol for a... PRN PRN IVPUSH; Start 03/12/17 at 08:25; Stop 03/13/17 at 10:15; Status DC Carvedilol 6.25 mg BIDWM PO; Start 03/13/17 at 17:30 Furosemide 40 mg DAILY PO; Start 03/14/17 at 08:30 Spironolactone 12.5 mg DAILY PO Last administered on 03/13/17 11:28; Admin Dose 12.5 MG; Start 03/13/17 at 09:45 Scheduled Amlodipine (Amlodipine) 5 Mg Tablet 5 MG PO DAILY Aspirin (Aspirin) 81 Mg Tablet 81 MG PO DAILY Clopidogrel (Clopidogrel) 75 Mg Tablet 75 MG PO DAILY Fluticasone Propionate (Fluticasone Propionate Nasal) 16 Gm Vantage.susp 2 SPRAYS NASAL HS Furosemide (Furosemide) 20 Mg Tab 20 MG PO DAILY Isosorbide DN (Isosorbide DN) 10 Mg Tablet 10 MG PO TID Losartan Potassium (Losartan Potassium) 100 Mg Tablet 100 MG PO DAILY Metformin (Metformin) 500 Mg Tablet 500 MG PO BIDWM Potassium Chloride (Potassium Chloride) 20 Meq Tab.er.prt 220 MEQ PO DAILY Tamsulosin ER (Tamsulosin ER) 0.4 Mg Cap.er.24h 0.4 MG PO DAILY Timolol Maleate (Timolol Maleate) 5 Ml Drops 1 DROP BOTH_EYES DAILY Objective Findings Exam Vital Sign - Last Date Time Temp Pulse Resp B/P Pulse Ox O2 Delivery O2 Flow Rate FiO2 03/13/17 15:48 36.5 73 20 101/63 96 Room Air 03/11/17 13:03 2.50 Intake and Output 03/12/17 03/12/17 03/13/17 Cumulative From/Thru 15:00 23:00 07:00 03/11/17 02:30 - 03/13/17 04:16 Intake Total 138 ml 463 ml Output Total 300 ml 501 ml Balance -162 ml -38 ml Intake Oral 50 ml 375 ml IV Total 88 ml 88 ml Output Urine Total 300 ml 500 ml Urine/Stool Mix 1 ml # Voids 7 General: Alert/Oriented x3, Alert, Oriented, Person, Place, Time, No acute distress HEENT: PERRLA, EOMI, Scleral Anicteric, Mucous Membr Moist/[place] Heart: Regular Rate/Rhythm, Holosystolic Murmur (blowing) Lungs: Clear to Auscultation Abdomen: Soft Neuro: Cranial Nerve 3-12 Intact, Other (wide based stance, can walk in room with walker independently although slowly) Extremities: No Edema, Other (bootiner deformit of DIP joints ) Lab/Diagnostics Lab and Imaging results reviewed in detail in EMR. Na 122, CR 1.7 OT/PT-137/79 ECHO ant, ant apical and inf/inf/post hypokinesis with severe MR EF 20-3- or 30- 35% Patient/Family Conference Members Present Family Members Present patient Medical Team Members Present? Robinson [facility] Discussion/Goals of Care Discussion FAMILY UNDERSTANDING OF DISEASE: He understands the severity of disease but also that he has had this for some time. He is very matter of fact in discussion. He has not told his children but his niece is aware of his cardiac condition DISEASE PROGRESSION/EVIDENCE OF DECLINE: Probably build but then abrupt SYMPTOM BURDEN: weakness, dyspnea GOALS: Would like to be able to stay with his niece. HOPES/WORRIES: FAMILY WISHES/VALUES: He is matter of fact. He wants to know details re condition to help planning. Time spent Total time 45 minutes; >50% face to face with patient and/or family, providing counselling regarding plans and recommendations, and in care coordination with his/her medical teams. I also spent an additional 20 minutes counseling for advanced care planning with the patient/the patients family/the surrogate decision maker. copies to: Shyam Miner MD, Alma Delia Barnes MD Mar 13, 2017 16:43
--- NOTE | 2017-03-13 17:42 | PCM.PNMED ---
Subjective Date of Service Mar 13, 2017 Subjective Patient is an 86 y/o male with PMH of CAD with [place] in 2004 resulting in CABG. Also has a history of CVA, HTN, hyperlipidemia, and T2DM. Patient was seen and examined by me today. Currently feels no chest pain or palpitations. Denies shortness of breath, has an occasional dry cough. Denies nausea or vomiting. No diarrhea, constipation or abdominal pain. Expresses improvement in leg weakness, with ability to go to and from bathroom using walker. Denies numbness or tingling in legs. Denies difficulty urinating. Denies dizziness, loss of balance, or syncope. All other review of systems if negative. Overnight experienced chest pain, rated 5-6/10, that subsided after 15 with 1 mg IV morphine and 1 sublingual nitro. He was made NPO after midnight. Exam Vital Signs Vital Sign - Last Date Time Temp Pulse Resp B/P Pulse Ox O2 Delivery O2 Flow Rate FiO2 03/13/17 04:16 36.5 74 16 109/67 96 Room Air 03/11/17 13:03 2.50 Intake and Output 03/12/17 03/12/17 03/13/17 Cumulative From/Thru 15:00 23:00 07:00 03/11/17 02:30 - 03/13/17 04:16 Intake Total 138 ml 463 ml Output Total 300 ml 501 ml Balance -162 ml -38 ml Intake Oral 50 ml 375 ml IV Total 88 ml 88 ml Output Urine Total 300 ml 500 ml Urine/Stool Mix 1 ml # Voids 7 Exam General: Patient is lying comfortably on bed, AAOX3, not in acute distress, cooperative and pleasant. HEENT: head normocephalic and atraumatic, PERRLA, EOMI, no scleral icterus, noninjected conjunctiva Neck: neck supple, non-tender, no lymphadenopathy, trachea midline, mild JVD CV: regular rate and rhythm, s1 and s2 heard, radial pulses equal bilaterally, no rubs, no edema, grade II/6 systolic murmur heard best of LLSB, distal pulses difficult to palpate Lungs: decreased breath sounds diffusely, slightly worse on right lung base, no increased work of breathing Abdomen: normoactive bowel sounds on 4Q, soft, non-distended, non-tender to palpation, no organomegally, Skin: warm and dry Musculoskeletal: 5/5 strength in R leg, 4/5 in left, sensation grossly intact Neuro: Grossly neurologically intact, cranial nerves II through XII intact, no dyskinesia, dysmetria, or dysdiadochokinesia noted Psych: Normal mood and affect IVs and Medications Medications Reviewed: Medications were reviewed in detail Lab and Diagnostics Laboratory Tests Test 03/12/17 14:25 03/12/17 15:25 03/12/17 16:36 03/12/17 23:09 Activated Partial Thromboplast Time 202.6sec (22.8-33.0) 195.6sec (22.8-33.0) 116.0sec (22.8-33.0) 103.9sec (22.8-33.0) Test 03/13/17 02:25 03/13/17 05:40 03/13/17 07:24 White Blood Count 7.1th/mm3 (3.8-10.1) Red Blood Count 4.25mil/mm3 (4.40-5.80) Hemoglobin 13.0g/dL (13.8-17.2) Hematocrit 37.6% (41.0-50.0) Mean Corpuscular Volume 88.5fL (81-100) Mean Corpuscular Hemoglobin 30.6pg (27.0-35.0) Mean Corpuscular Hemoglobin Concent 34.6% (32.0-37.0) Red Cell Distribution Width 13.1% (12.3-15.4) Platelet Count 248bil/L (150-400) Sodium Level 127mEq/L (134-144) Potassium Level 3.9mEq/L (3.5-5.2) Chloride Level 89mEq/L (97-108) Carbon Dioxide Level 22mmol/L (18-29) Blood Urea Nitrogen 34mg/dL (8-27) Creatinine 1.15mg/dL (0.76-1.27) Estimat Glomerular Filtration Rate 64mL/min (>59) Glucose Level 104mg/dL (60-99) Calcium Level 8.0mg/dL (8.5-10.1) Magnesium Level 2.3mg/dL (1.6-2.6) Total Bilirubin 0.3mg/dL (0.0-1.2) Aspartate Amino Transf (AST/SGOT) 44U/L (0-50) Alanine Aminotransferase (ALT/SGPT) 65U/L (0-44) Alkaline Phosphatase 75U/L (25-160) Troponin T 0.620ug/L (0.0-0.011) 0.527ug/L (0.0-0.011) Total Protein 6.4g/dL (6.4-8.4) Albumin 3.6g/dL (3.4-5.0) Total Creatine Kinase 64U/L (21-232) Creatine Kinase MB 3.7ng/mL (0.0-10.4) Creatine Kinase MB % % (0.0-5.0) Result Diagram: 03/13/1722403/13/17224 X-Rays, CTs and MRIs CXR performed at [facility] and report obtained from faxed information Cardiomegaly with pulmonary vascular congestion and pulmonary edema, left greater than right. Bibasilar atelectasis vs consolidation. Cardiac Echo Impressions ECHO on 03/11/17 Interpretation Summary 1. Normal left ventricular size and wall thickness with an estimated EF of 30 -35%. Wall motion abnnormalities are as noted below 2. Normal right ventricular size with severely decreased systolic function. The estimated RVSP is 47 mm Hg 3. Moderate to severe mitral regurgitation 4. Findings consistent with moderate aortic stenosis and mild insufficiency No old study for comparison Assessment & Plan Patient is an 86 y/o Male with past medical history of CAD with [place] in 2003 resulting in CABG, CVA, HTN, Hyperlipidemia, and T2DM who was transferred from [facility] after c/o increased SOB and weakness onset at about 1800 on 03/10/17. - Acute Exacerbation of Systolic Congestive Heart Failure likely secondary to ischemic cardiomyopathy, POA, Active - Patient presents from [facility] with Shortness of breath and clinical signs of fluid overload including JVD and decreased basilar breath sounds - Patient's history indicates he was recently worked up for CHF, obtained records from [facility] for recent echo which showed EF 25-30% - Cadiology consulted, Dr. Olivera and we appreciate his input - Per cardiology, continue with aggressive diuresis. Was Given Lasix 40mg IV daily. Per recommendations of cardiology, Change IV furosemide to oral furosemide and initiate spironolactone -Consider pharmacologic myocardial perfusion study to assess for ischemia - CXR showed Pulmonary edema and/or bibasilar pneumonia and small pleural effusions are present. - Troponin-I was elevated at [facility] at 6.03. Draw an initial Troponin level here and trend Q6. 0.974, 0.917, 1.09 - discontinue his amlodipine - Continue Clopidogrel home dose -Given increase in troponin to 1.09 and new EKG changes this am on 03/12 which showed T wave inversions leads V1-V6 and ST depression, V1-V3, concern for ACS and we started patient on Heparin drip per cardiac protocol -Cardiology is uncertain if patient would be a good candidate for cardiac catheterization given worsening renal function. In addition, patient is not interested in surgical treatment for severe mitral regurgitation -Cardiology consulted palliative to speak with patient about goals of care. - Acute Kidney Injury, POA, Active, Stable - Patient's SCr 1.7 on [facility]'s labs, baseline unknown. Etiology could be secondary to chronic Diabetes vs cardiorenal syndrome - Repeat CMP in AM shows improvement Cr today 1.30 - Acute Elevated Anion Gap Metabolic Acidosis, POA, Active, Stable - Patient's AG was 17 at [facility]. Etiology could be secondary to vs Diarrhea (history and Patient hyperkalemic) vs EtOH (AST 137, ALT 79; although patient denies any EtOH use) vs medication induced hypoaldosteronism ( elevated K, patient on high dose Losartan) vs Renal Tubular Acidosis (SCr 1.7 ) - Serum Lactic Acid normalized to 1.9 -Continue to monitor BMP -Acute Elevated Transaminases, POA, Active, Stable - Patient AST 137 ALT 79, although patient denies any EtOH use; etiology could be possible EtOH, Salicylate poisoning - Monitor with AM CMP. Improving today to AST 81, ALT 85 - Serum EtOH and Serum Salicylate unremarkable - Acute Hyperkalemia, POA, resolved Stable - Patient presented to [facility] with Potassium 5.3. Etiology could be secondary to untreated kidney disease, chronic diarrhea, over-medication as patient takes a home dose of Potassium - Furosemide 40 mg IV - Repeat CMP in AM shows that hyperkalemia resolved - Stool culture/ CDiff -Acute Hyponatremia, POA, Active, Stable - Patient's Sodium 120, Etiology could be fluid overload secondary to Congestive Heart Failure - Fluid restriction. -Lasix oral -Patient's corrected sodium increased to 124 - Monitor with AM CMP - Chronic T2DM Uncontrolled, POA, Active, Stable - Hold Home Metformin - Insulin Correctional dosing - Chronic HTN, Stable -Per recommendations of cardiology, discontinue amlodipine -Start Carvedilol 3.25 mg bid. Advance carvedilol 3.125 to 6.25 mg daily. -Losartan 12.5 mg daily Hyperlipidemia, Stable -Restart Atorvastatin PATIENT is LIMITED INTERVENTIONS: DNR; INTUBATE Disposition: We will continue with aggressive diuresis, reassess electrolytes and consider goals of care with palliative. Pain Evaluation: Adequate Pain Control GI Prophylaxis: Proton Pump Inhibitor VTE Prophylaxis: Sub-Q Heparin (Unfractionated), SCDs VTE Mechanical Devices: Intermittant Pneumatic CD Resuscitation Status: Limited Interventions Limited Interventions: Intubation w Mech Vent Time spent 25 minutes Attending Statement I have seen and evaluated patient at bedside in addition to directly supervising care provided by resident physician on 03/13/2017. I agree with above documentation. Stephania Queen DO Mar 13, 2017 07:50 Moreno Zhao DO Mar 13, 2017 22:06
--- NOTE | 2017-03-13 18:10 | NUR ---
Cardiac: A/o x3, moves all extremities, responds appropriately. Tele SR 70s, VSS, RA O2 sats 96%. Heparin gtt stopped, plan is to medically manage pt's cardiac issues. Tolerating PO intake well, voiding independently. Palliative care consult today, POLST form in chart. Care ongoing.
[2017-03-14] MEDS: Heparin 5,000 Unit/mL Inj SUBQ SCH ×3 (01:03→15:40)
[2017-03-14 03:09] VITALS: BP 119/70; PULSE 77; RESP 12; O2SAT 93
--- NOTE | 2017-03-14 03:49 | NUR ---
Tele/rest A&O x3 using call light appropriately, saline locked , room air , adlib to toilet, sleeping comfortably in bed , no C/O pain or discomfort. Tele: SR-70's
[2017-03-14 04:32] LABS: BASOPHILS % (AUTO) 0.6 % (0-3); EOSINOPHILS % (AUTO) 4.4 % (0-5); MONOCYTES % (AUTO) 10.2 % (4-12); Mean Corpuscular Hemoglobin 30.1 pg (27.0-35.0); Mean Corpuscular Volume 89.1 fL (81-100); NEUTROPHILS % (AUTO) 67.6 % (40-74); Platelet Count 266 bil/L (150-400)
[2017-03-14 05:07] LABS: Magnesium 2.1 mg/dL (1.6-2.6)
[2017-03-14 06:16] VITALS: PULSE 77
[2017-03-14 08:00] VITALS: PULSE 85
[2017-03-14] MEDS: Insulin LISPRO 300 Unit/3 mL Inj SUBQ SCH ×3 (08:00→17:30)
[2017-03-14 08:09] VITALS: BP 130/77; PULSE 82; RESP 16; O2SAT 95
[2017-03-14] MEDS: Fluticasone 0.05% 15 Spray/2 Gm 16 Gm Nasal Spray NOSTRIL SCH (08:17)
[2017-03-14] MEDS: Timolol 0.5% 5 mL Ophthalmic Solution BOTH_EYES SCH (08:22)
--- NOTE | 2017-03-14 09:14 | PCM.PALLBR ---
Palliative Care Recommendation Summary of palliative recommendations: 03/14/17-Clinically improved with less SOB and improved strength. Still hyponatremia but stable. Reviewed documents--including completion of DPOAHC/AD. POLST completed and to go with him. Reviewed option of hospice if sx accelerate and are not controllable. He qualifies based on severity of disease. Advise that he review this with his PCP-serina if sx worsen. Advised to communicate severity of his disease to his children who are more distant. -Symptom management (Pain/other) Dyspnea- due to CHF. Prognosis is worsened by his hyponatremia. CHF under cardiac management and patient is not interested in further cath or aggressive interventions suspect he has had more sx than he acknowledges creeping up on him over time Weakness-also acute in onset. Mild orthostasis-no recent falls.Gait imbalance-he is very disciplined in using either his cane or now more recently a walker. GOALS OF CARE: He is interested in med management but he is not interested in aggressive care. He hopes he can improve back to close to his prior baseline. That was a good QOL If his sx worsen he would be willing to entertain hospice. He is familiar with how they fxn/purpose since his sister was on hospice as she became ill. -DPOA/Advanced Directives/POLST --DPOAHC not completed. He identifies his niece- Kerline Aguilar [phone] as his preference for DPOAHC and his children to follow but mostly due to distance/proximity. Form given for completion and witnessing or notary. Same for AD. POLST is completed for DNR/limited intervention but no feeding tube. 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 PT outpatient Abn LFT- suspect congestive vs [place] Problems: End of Life Preferences DNR, no feeding tube. Goals of Care He hopes to have some improvement in heart condition and fxn. Only moderate improvement will help with general. Disposition Home Resuscitation Status Resuscitation Status: DNR/DNI:Do Not Resuscitate/Intubate Limited Interventions: Medications and IV Fluid POLST Updates/Changes Previous POLST?: No Artificially Admin Nutrition: No Artifical Nutrition by Tube POLST Discussed with: Patient POLST Review Outcome: New Form Completed . Advanced Care Planning Address: POLST, Code status change Pain: None Total time 20 minutes; >50% face to face with patient and/or family, providing counselling regarding plans and recommendations, and in care coordination with his/her medical teams. I also spent an additional [ ] minutes counseling for advanced care planning with the patient/the patients family/the surrogate decision maker. copies to: Shyam Miner MD Palliative Brief Note Date of Service Mar 14, 2017 . Pt states he is feeling better with less SOB, more strength getting OOB. Looking forward to getting home. O: OX3, alert, recalls discussion yesterday. COR- RR, blowing systolic m no edema transaminases improved suggesting CHF as cause Albumin 4, CR 1.27, Na 126 Alma Delia Ocampo MD Mar 14, 2017 09:13
[2017-03-14 12:22] VITALS: BP 99/57; PULSE 81; RESP 16; O2SAT 95
--- NOTE | 2017-03-14 13:06 | NUR ---
HOSPICE REFERRAL: Faxed clinicals to [facility] per [employer] and MD orders.
[2017-03-14] MEDS ORDERED: LOSA25TA2 PO (13:38)
[2017-03-14] MEDS ORDERED: CARV3.122 PO (13:38)
[2017-03-14] MEDS ORDERED: ATOR40TA69 PO (13:38)
[2017-03-14] MEDS ORDERED: FURO40TA4 PO (13:39)
[2017-03-14] MEDS ORDERED: ASPI81TA3 PO (13:39)
[2017-03-14] MEDS ORDERED: SPIR25TA PO (13:39)
--- NOTE | 2017-03-14 16:25 | PCM.DIMED ---
Stephania Queen DO 03/14/17 1334: Discharge Instructions Date of Service Mar 14, 2017 Dates of Hospitalization Mar 11, 2017 at 02:30 Discharge Diagnosis Discharge Diagnosis Acute Exacerbation of Systolic Congestive Heart Failure likely secondary to ischemic cardiomyopathy Acute Kidney Injury Acute Elevated Anion Gap Metabolic Acidosis Acute Elevated Transaminases Acute Hyperkalemia, resolved Acute Hyponatremia Chronic Type 2 Diabetes Mellitus Chronic Hypertension, stable Hyperlipidemia, Stable Diet Discharge Diet: Heart Healthy, Diabetic Activity Discharge Activity: No restrictions Call your provider Call your provider for: Fever or Chills, Shortness of breath, Bleeding, Chest pain, Vomitting, Excessive diarrhea, Weakness (unilateral) Patient Instructions Patient Instructions You came to the hospital because you were feeling weak and short of breath. We found that your sodium was low and you were in heart failure and was retaining fluid. We did an echocardiogram (Ultrasound of your heart) which showed that the heart function is significantly reduced to 30% in addition to heart valves that are not functioning properly. We consulted commercial real estate manager, and you had a discussion with him about your desire to avoid any invasive procedures such as surgeries for valve replacement or cardiac catheterization to check the heart blood vessels. As a result, we opted for optimal medical management of your heart failure with medications. We gave you Lasix, a water pill, to help get rid of some of your fluids. This helped with your shortness of breath and it helped increase your sodium levels. You report feeling better prior to discharge and you were denying any chest pain and shortness of breath. In addition, we talked about various options for helping manage your heart failure and you were interested in hospice managing your CHF. Given your serious medical condition, they can closely manage your congestive heart failure by checking your medications and adjusting them based on your symptoms, vital signs, and labs. You will be able to easily contact hospice whenever you feel any symptoms such as shortness of breath so that they can help manage your symptoms and you may not need to return to the hospital. We have arranged for an informational visit with hospice at your home so that they can better explain the services that they provide. For the meantime, we can arrange a follow-up with your primary care provider. If you decide to participate in hospice for CHF management, you may not need to go to your doctor appointment as the hospice doctors will be the one managing your care and prescriptions. You have a Hospice Informational Visit at your home at 10 am on 03/15/17 Follow-up plan You have a Hospice Informational Visit at your home at 10 am on 03/15/17 Follow up with Hospice for CHF management Follow-up Provider: Shyam Miner MD Follow-up with PCP in: 1 week Demario Mujica MD 03/15/17 1609: Discharge Instructions Attending's Statement The patient was seen and examined together with Dr. Queen on 03/14/2017 and I agree with the history, exam and plan as outlined in the note above. . Stephania Queen DO Mar 14, 2017 13:34 Demario Mujica MD Mar 15, 2017 16:09
--- NOTE | 2017-03-14 16:53 | NUR ---
Social Work: Discharge/Multidisciplinary Rounds D: Pt discussed in multidisciplinary rounds; Patient is medically stable for discharge. provider feels that the patient would benefit from a hospice informational visit post-discharge to discuss possible CHF management. The patient agrees with this and intends to sign consents. Patient is discharging home today. CAMOUFLAGE SPECIALIST spoke with hospice of [facility] to provide referral. They can see the patient tomorrow at 10:00am in his home. They will contact the patient to confirm this. CAMOUFLAGE SPECIALIST met with the patient at bedside to notify of this appointment and confirm discharge plan. patient lives in [place]. He is ambulating I during admission and has no concerns about his discharge. Patient appreciative of information out info visit time tomorrow. He will await confirmation phone call from hospice and expect them at his house at 10:00am. A: pt who is I at baseline and requiring hospice for CHF management. P: Patient to discharge home with hospice to visit him tomorrow at 10:00am. Patient's niece will transport him home. SANDHYA Hawkins
--- NOTE | 2017-03-14 17:54 | NUR ---
Discharge Patient A&Ox3. Independent in room with FWW. VSS. Patient is set to have info visit with hospice tomorrow at 10 AM. Discharge instructions and medications printed and reviewed verbally with patient. Patient declined evening blood glucose/insulin, stating he wanted to do it himself at home. IV DC'd intact. Patient left unit via WC with all personal belongings, accompanied by niece. Transported home via private vehicle.
--- NOTE | 2017-03-14 18:19 | PCM.DC.MED ---
Discharge Summary Date of Service Mar 14, 2017 Dates of Hospitalization Date of Hospital Admission Mar 11, 2017 at 02:30 Date of Discharge: Mar 14, 2017 Providers: Admitting Physician: Spenser El MD Primary Care Physician: Shyam Miner MD Attending Physician: Demario Mujica MD Diagnosis at Time of Discharge Diagnosis at Time of Discharge Acute Exacerbation of Systolic Congestive Heart Failure likely secondary to ischemic cardiomyopathy Acute Kidney Injury Acute Elevated Anion Gap Metabolic Acidosis Acute Elevated Transaminases Acute Hyperkalemia, resolved Acute Hyponatremia Chronic Type 2 Diabetes Mellitus Chronic Hypertension, stable Hyperlipidemia, Stable Consultations Cardiology, Dr. Cross was consulted. Palliative care, Dr. Ocampo Procedures XRay, CTs & MRIs CXR performed at [facility] and report obtained from faxed information Cardiomegaly with pulmonary vascular congestion and pulmonary edema, left greater than right. Bibasilar atelectasis vs consolidation. Cardiac Echo Impression ECHO on 03/11/17 Interpretation Summary 1. Normal left ventricular size and wall thickness with an estimated EF of 30 -35%. Wall motion abnnormalities are as noted below 2. Normal right ventricular size with severely decreased systolic function. The estimated RVSP is 47 mm Hg 3. Moderate to severe mitral regurgitation 4. 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 Patient reports that he had been feeling SOB all day yesterday, but after he ate dinner at home, he felt nauseous and increasingly short of breath. Patient reports some epigastric pain that is described at "gas in belly" that does not radiate. The symptoms are constant and are present during the interview. Patient denies any CP, MOORE, palpitations, or urinary symptoms. He states he had one episode of vomiting while being transferred to this facility. He has chronic diarrhea that is intermittent and has had diarrhea the past couple of days and throughout this month. He reports weakness in his legs that has been going on for the past month. Patient was seen at [facility] for cardiac workup. He has recently been evaluated for systolic congestive heart failure and has been placed on and Furosemide 20mg PO daily. He takes Amlodipine 5mg PO daily and Losartan 100mg PO daily. At [facility], his Troponin I was 6.03 and his CXR showed cardiomegaly with pulmonary vascular congestion and pulmonary edema, left greater than right. Bibasilar atelecatsis with pos. consolidation. Patient was placed on a Heparin drip and Cardiology,Dr. Cantu, was consulted prior to transfer. PALLIATIVE CARE CONSULTATION REQUESTING DR.ROB CROSS REASON GOALS OF CARE/ACP 86 yo patient followed by Dr. Miner on [facility] for the past 5 yrs with known ASCAD s/p MA/CABG in 2003 at the time his was dying from a CVA. He has been seen by cardiology before moving to [facility] to be near his niece with a note of occluded graft and advise to treat medically. He has done well over the past 5 yrs despite a low EF dating back to 2003. He states he has had some SMITH and has curtailed his activities probably for a bit of time although has a hard time identifying being SOB. He notes CP/pressure with increasing SOB only 2 -3 days before admission.He denies orthopnea, PND or edema. He has some gait instability and uses a cane and occasionally a walker and then can shop [employer] [place]. He identifies a very good QOL until recent sx He lives on [facility] to be near his niece. He has a son and daughter by his first who live in [place]. He identifies all trustworthy for decision making but 1st is his niece due to proximity. He has not completed DPOAHC to reflect this/nor AD. Denies pain, weight loss-has a very good appetite. No sense of malaise or fatigue until just past few days to a week. Has chronic alternating constipation and diarrhea but has not pursued this to ID cause. No blood. 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 - Acute Exacerbation of Systolic Congestive Heart Failure likely secondary to ischemic cardiomyopathy, POA, Active - Patient presents from [facility] with Shortness of breath and clinical signs of fluid overload including JVD and decreased basilar breath sounds - Patient's history indicates he was recently worked up for CHF, obtained records from [facility] for recent echo which showed EF 25-30% - Cadiology consulted, Dr. Cross and we appreciate his input - Per cardiology, continue with aggressive diuresis. Was Given Lasix 40mg IV daily. Per recommendations of cardiology, Change IV furosemide to oral furosemide and initiate spironolactone -Consider pharmacologic myocardial perfusion study to assess for ischemia - CXR showed Pulmonary edema and/or bibasilar pneumonia and small pleural effusions are present. - Troponin-I was elevated at [facility] at 6.03. Draw an initial Troponin level here and trend Q6. 0.974, 0.917, 1.09 - discontinued his amlodipine - Continued Clopidogrel home dose -Given increase in troponin to 1.09 and new EKG changes this am on 03/12 which showed T wave inversions leads V1-V6 and ST depression, V1-V3, concern for ACS and we started patient on Heparin drip per cardiac protocol. This was discontinued by Cardiology -Cardiology is uncertain if patient would be a good candidate for cardiac catheterization given worsening renal function. In addition, patient is not interested in surgical treatment for severe mitral regurgitation -Cardiology consulted palliative to speak with patient about goals of care. -Patient was interested in arranging hospice for CHF management. Patient will have a hospice informational visit on 03/15/17 at 10 am. - Acute Kidney Injury, POA, Active, Stable - Patient's SCr 1.7 on [facility]'s labs, baseline unknown. Etiology could be secondary to chronic Diabetes vs cardiorenal syndrome - Repeat CMP in AM shows steady improvement Creatinine - Acute Elevated Anion Gap Metabolic Acidosis, POA, Active, Stable - Patient's AG was 17 at [facility]. Etiology could be secondary to vs Diarrhea (history and Patient hyperkalemic) vs EtOH (AST 137, ALT 79; although patient denies any EtOH use) vs medication induced hypoaldosteronism ( elevated K, patient on high dose Losartan) vs Renal Tubular Acidosis (SCr 1.7 ) - Serum Lactic Acid normalized to 1.9 -Continued to monitor BMP -Acute Elevated Transaminases, POA, Active, Stable - Patient AST 137 ALT 79, although patient denies any EtOH use; etiology could be possible EtOH, Salicylate poisoning - Monitored AM CMP. LFTs improved - Serum EtOH and Serum Salicylate unremarkable - Acute Hyperkalemia, POA, resolved Stable - Patient presented to [facility] with Potassium 5.3. Etiology could be secondary to untreated kidney disease, chronic diarrhea, over-medication as patient takes a home dose of Potassium - Furosemide 40 mg IV - Repeat CMP in AM shows that hyperkalemia resolved -Acute Hyponatremia, POA, Active, Stable - Patient's Sodium 120, Etiology could be fluid overload secondary to Congestive Heart Failure - Fluid restriction. -Lasix oral -Patient's corrected sodium increased to 127 - Monitor with AM CMP - Chronic T2DM Uncontrolled, POA, Active, Stable - Held Home Metformin - Insulin Correctional dosing - Chronic HTN, Stable -Per recommendations of cardiology, discontinued amlodipine -Started Carvedilol 3.25 mg bid. Advanced carvedilol 3.125 to 6.25 mg daily. -Losartan 12.5 mg daily Hyperlipidemia, Stable -Restarted Atorvastatin . Exam Vital Signs (Last) Date Time Temp Pulse Resp B/P Pulse Ox O2 Delivery O2 Flow Rate FiO2 03/14/17 12:22 36.6 81 16 99/57 95 Room Air 03/11/17 13:03 2.50 Exam General: Patient is lying comfortably on bed, AAOX3, not in acute distress, cooperative and pleasant. HEENT: head normocephalic and atraumatic, PERRLA, EOMI, no scleral icterus, noninjected conjunctiva Neck: neck supple, non-tender, no lymphadenopathy, trachea midline, mild JVD CV: regular rate and rhythm, s1 and s2 heard, radial pulses equal bilaterally, no rubs, no edema, grade II/6 systolic murmur heard best of LLSB, distal pulses difficult to palpate Lungs: decreased breath sounds diffusely, slightly worse on right lung base, no increased work of breathing Abdomen: normoactive bowel sounds on 4Q, soft, non-distended, non-tender to palpation, no organomegally, Skin: warm and dry Musculoskeletal: 5/5 strength in R leg, 4/5 in left, sensation grossly intact Neuro: Grossly neurologically intact, cranial nerves II through XII intact, no dyskinesia, dysmetria, or dysdiadochokinesia noted Psych: Normal mood and affect Test 03/11/17 05:25 03/11/17 06:24 03/11/17 11:00 03/12/17 03:10 Osmolality 266 (275-300) Salicylates Level 10.0ug/mL (30-250) Alcohols < 10mg/dL (0-10) Urine Color Yellow (YELLOW) Urine Appearance Hazy (CLEAR,HAZY) Urine pH 6.0 (5.0-8.0) Urine Specific [place] 1.015 (1.003-1.035) Urine Protein Negativemg/dL (NEG,TRACE) Urine Glucose (UA) Negativemg/dL (NEGATIVE) Urine Ketones Negativemg/dL (NEGATIVE) Urine Occult Blood Negative (NEGATIVE) Urine Nitrite Negative (NEGATIVE) Urine Bilirubin Negative (NEGATIVE) Urine Urobilinogen Normalmg/dL (NORMAL) Urine Leukocyte Esterase Negative (NEGATIVE) Urine RBC 0-2/hpf (0-2) Urine WBC 0-5/hpf (0-5) Urine Epithelial Cells Occasional/hpf (NONE-MOD) Urine Crystals None seen (NONE SEEN) Urine Bacteria None/hpf (NONE-FEW) Urine Hyaline Casts 5/20/lpf (NONE) Urine Granular Casts None seen (NONE SEEN) Urine Waxy Casts None seen (NONE SEEN) Urine Red Blood Cell Casts None seen (NONE SEEN) Urine White Blood Cell Casts None seen (NONE SEEN) Urine Mucus Present (None Seen) Urine Trichomonas None seen (NONE SEEN) Urine Yeast None (NONE SEEN) Urinalysis Comment None Urine Culture Reflexed Not indicated Urine Osmolality 487mOs/kH2O (250-1200) Urine Random Sodium 40mEq/L Thyroid Stimulating Hormone (TSH) 2.000uIU/mL (0.450-4.500) Hemoglobin A1c 6.5% (4.8-5.6) Lactic Acid Level 1.4mmol/L (0.4-2.0) Phosphorus Level 4.1mg/dL (2.5-4.9) Test 03/13/17 05:40 03/13/17 07:24 03/14/17 04:18 Total Creatine Kinase 64U/L (21-232) Creatine Kinase MB 3.7ng/mL (0.0-10.4) Creatine Kinase MB % % (0.0-5.0) Troponin T 0.527ug/L (0.0-0.011) Activated Partial Thromboplast Time 92.8sec (22.8-33.0) White Blood Count 8.3th/mm3 (3.8-10.1) Red Blood Count 4.49mil/mm3 (4.40-5.80) Hemoglobin 13.5g/dL (13.8-17.2) Hematocrit 40.0% (41.0-50.0) Mean Corpuscular Volume 89.1fL (81-100) Mean Corpuscular Hemoglobin 30.1pg (27.0-35.0) Mean Corpuscular Hemoglobin Concent 33.8% (32.0-37.0) Red Cell Distribution Width 13.2% (12.3-15.4) Platelet Count 266bil/L (150-400) Neutrophils (%) (Auto) 67.6% (40-74) Lymphocytes (%) (Auto) 16.7% (14-46) Monocytes (%) (Auto) 10.2% (4-12) Eosinophils (%) (Auto) 4.4% (0-5) Basophils (%) (Auto) 0.6% (0-3) Sodium Level 126mEq/L (134-144) Potassium Level 4.4mEq/L (3.5-5.2) Chloride Level 88mEq/L (97-108) Carbon Dioxide Level 24mmol/L (18-29) Blood Urea Nitrogen 26mg/dL (8-27) Creatinine 1.27mg/dL (0.76-1.27) Estimat Glomerular Filtration Rate 57mL/min (>59) Glucose Level 136mg/dL (60-99) Calcium Level 8.4mg/dL (8.5-10.1) Magnesium Level 2.1mg/dL (1.6-2.6) Total Bilirubin 0.7mg/dL (0.0-1.2) Aspartate Amino Transf (AST/SGOT) 38U/L (0-50) Alanine Aminotransferase (ALT/SGPT) 49U/L (0-44) Alkaline Phosphatase 75U/L (25-160) Total Protein 6.3g/dL (6.4-8.4) Albumin 4.0g/dL (3.4-5.0) Discharge Medications Discharge Medications Aspirin (Aspirin) 81 Mg Tablet 81 MG PO DAILY (Reported) Aspirin Chew (Aspirin Chew) 81 Mg Chew 81 MG PO DAILY Prescribed by: Darrick VALENTINO Atorvastatin Calcium (Atorvastatin Calcium) 40 Mg Tablet 40 MG PO HS Prescribed by: Darrick VALENTINO Carvedilol (Carvedilol) 3.125 Mg Tablet 6.25 MG PO BIDWM Prescribed by: Darrick VALENTINO Clopidogrel (Clopidogrel) 75 Mg Tablet 75 MG PO DAILY (Reported) Fluticasone Propionate (Fluticasone Propionate Nasal) 16 Gm [place].susp 2 SPRAYS NASAL HS (Reported) Furosemide (Furosemide) 40 Mg Tablet 40 MG PO DAILY Prescribed by: Darrick VALENTINO Losartan Potassium (Cozaar) 25 Mg Tablet 12.5 MG PO DAILY Prescribed by: Darrick VALENTINO Metformin (Metformin) 500 Mg Tablet 500 MG PO BIDWM (Reported) Spironolactone (Aldactone) 25 Mg Tablet 12.5 MG PO DAILY Prescribed by: Darrick VALENTINO Tamsulosin ER (Tamsulosin ER) 0.4 Mg Cap.er.24h 0.4 MG PO DAILY (Reported) Timolol Maleate (Timolol Maleate) 5 Ml Drops 1 DROP BOTH_EYES DAILY (Reported) Followup Plan Disposition: Patient has been discharged to home in stable condition. Patient has a hospice informational visit for CHF management Follow-up plan You have a Hospice Informational Visit at your home at 10 am on 03/15/17 Follow up with Hospice for CHF management Discharge Diet: Heart Healthy, Diabetic Discharge Activity: No restrictions Patient Instructions You came to the hospital because you were feeling weak and short of breath. We found that your sodium was low and you were in heart failure and was retaining fluid. We did an echocardiogram (Ultrasound of your heart) which showed that the heart function is significantly reduced to 30% in addition to heart valves that are not functioning properly. We consulted industrial recruiter, and you had a discussion with him about your desire to avoid any invasive procedures such as surgeries for valve replacement or cardiac catheterization to check the heart blood vessels. As a result, we opted for optimal medical management of your heart failure with medications. We gave you Lasix, a water pill, to help get rid of some of your fluids. This helped with your shortness of breath and it helped increase your sodium levels. You report feeling better prior to discharge and you were denying any chest pain and shortness of breath. In addition, we talked about various options for helping manage your heart failure and you were interested in hospice managing your CHF. Given your serious medical condition, they can closely manage your congestive heart failure by checking your medications and adjusting them based on your symptoms, vital signs, and labs. You will be able to easily contact hospice whenever you feel any symptoms such as shortness of breath so that they can help manage your symptoms and you may not need to return to the hospital. We have arranged for an informational visit with hospice at your home so that they can better explain the services that they provide. For the meantime, we can arrange a follow-up with your primary care provider. If you decide to participate in hospice for CHF management, you may not need to go to your doctor appointment as the hospice doctors will be the one managing your care and prescriptions. You have a Hospice Informational Visit at your home at 10 am on 03/15/17 Follow-up Provider: Shyam Miner MD Follow-up with PCP in: 1 week Time spent Greater than 30 minutes was spent in preparation of discharge with greater than 50% of that time dedicated to patient counseling and coordination of care. . Attending Statement The patient was seen and examined together with Dr. Queen on 03/14/2017 and I agree with the history, exam and plan as outlined in the note above. . copies to: Shyam Miner MD, Alexa N DO Mar 14, 2017 18:02 Demario Mujica MD Mar 15, 2017 16:11
== END 2017-03-14 17:51 | disposition hospice, home (50) | DRG 292 ==
LOC: INTOOBSV 02:30 → PCC 02:30 → OBSVTOIN 02:30
PROVIDERS: ADMIT Hospitalist; ATTEND Internal Medicine
DX: I50.23 Acute on chronic systolic (congestive) heart failure (principal); N17.9 Acute kidney failure, unspecified; E87.2 Acidosis; E87.1 Hypo-osmolality and hyponatremia; I25.5 Ischemic cardiomyopathy; I25.2 Old myocardial infarction; Z95.1 Presence of aortocoronary bypass graft; Z79.84 Long term (current) use of oral hypoglycemic drugs; Z79.82 Long term (current) use of aspirin; R74.0 Nonspecific elevation of levels of transaminase and lactic acid dehydrogenase [LDH]; E87.5 Hyperkalemia; Z66 Do not resuscitate; I10 Essential (primary) hypertension; E11.65 Type 2 diabetes mellitus with hyperglycemia; E78.5 Hyperlipidemia, unspecified; I73.9 Peripheral vascular disease, unspecified; Z51.5 Encounter for palliative care; Z86.73 Personal history of transient ischemic attack (TIA), and cerebral infarction without residual deficits